=== PATIENT | female | born 1935 | race Caucasian/White ===

== ENCOUNTER 2019-02-16 15:58 | Inpatient (IN) | payer MEDICARE, MEDICAID ==
[~2019-02-16 15:58] MED LIST: ISOVUE-370 76%-LOCM 1 ML ONE
--- NOTE | 2019-02-16 16:55 | RAD ---
Chest one view HISTORY: Cough. Wheezing. COMPARISON: 04/04/2016. FINDINGS: Cardiac silhouette is magnified by projection. Pulmonary vasculature is upper limits of nor mal. Mediastinum is midline with postoperative changes and aortic calcification. Lungs remain hyperin flated. No evidence of pneumothorax. Degenerative changes of the shoulders are again demonstrated. Ir regular calcification over the medial margin of the left humeral neck is likely related to an intraca psular loose body. panel monitor leads overlie the chest. IMPRESSION: Atherosclerosis. Chronic type findings are stable. No active cardiopulmonary abnormalities are demonstrated.
[2019-02-16 17:01] LABS: #Basophils 0.1 thou/uL (0.0-0.2); #Eosinphils 0.1 thou/uL (0.0-0.7); #Lymphocytes 1.2 thou/uL (1.20-3.40); #Monocytes 0.5 thou/uL (0.11-0.59); #Neutrophils 9.9 thou/uL (1.40-6.50); %Basophils 0.5 % (0.0-1.0); %Eosinophils 1.1 % (0.0-10.0); %Monocytes 3.9 % (0.0-10.0); %Neutrophils 84.5 % (42.0-75.0); Hemoglobin 12.6 g/dL (12.0-16.0); Mean Corpuscular HGB CONC 31.7 g/dL (32.0-36.0); Mean Corpuscular Hemoglobin 29.8 pg (27.0-31.0); Mean Corpuscular Volume 94.1 fL (78.0-98.0); Mean Platelet Volume 8.4 fL (7.4-10.4); Platelet Count 224 thou/uL (130-400); RBC Distribution Width 13.1 % (11.5-14.5); Red Blood Cell (RBC) Count 4.22 mill/uL (4.20-5.40); White Blood Cell (WBC) Count 11.7 thou/uL (4.8-10.8)
[2019-02-16 17:25] LABS: Bilirubin Negative (Negative); Blood, Urine Negative (Negative); Clarity CLEAR (Clear); Glucose, Urine (Dipstick) Negative (Negative); Leukocyte Small (Negative); Nitrite Negative (Negative); Protein, Urine (Dipstick) Negative (Neg-Trace); Specific Gravity, Urine 1.015 (1.002-1.036); Urobilinogen 0.2 mg/dL (0.2-1.0)
[2019-02-16 17:27] LABS: Bacteria/HPF 3+ HPF (None Seen); Hyaline Casts/LPF 0-3 HYALINE CAST LPF (0-3 Hyaline); RBC/HPF 0-3 HPF (0-3)
[2019-02-16 17:34] LABS: ALT (SGPT) 7 U/L (8-55); AST (SGOT) 18 U/L (5-34); Albumin 4.2 g/dL (3.4-4.8); Alkaline Phosphatase 84 U/L (40-150); Anion Gap 16 mmol/L (10-20); BUN (Urea Nitrogen) 27 mg/dL (9.8-20.1); Bilirubin, Total 0.3 mg/dL (0.2-1.2); Calc. Creatinine Clearance 0 mL/min (70-130); Calcium 9.6 mg/dL (7.8-10.44); Carbon Dioxide 26 mmol/L (23-31); Chloride 103 mmol/L (98-107); Estimated GFR-MDRD 53; Globulin 2.6 g/dL (2.4-3.5); Glucose 121 mg/dL (83-110); Lipase 47 U/L (8-78); Potassium 4.7 mmol/L (3.5-5.1); Protein, Total 6.8 g/dL (6.0-8.3); Sodium 140 mmol/L (136-145)
[2019-02-16] MEDS ORDERED: Morphine 4 MG/ML VIAL ONE (18:06)
[2019-02-16] MEDS ORDERED: Ondansetron PF 4 MG/2 ML Vial ONE (18:06)
--- NOTE | 2019-02-16 18:31 | CT ---
CT ABDOMEN AND PELVIS WITH IV CONTRAST: History: Periumbilical abdominal pain. FINDINGS: Comparison made with exam of 08-27-14. There is mild infiltrate at the left lung base. The liver, spleen, pancreas, and right adrenal gland are normal. No calcified gallstones are seen. The 1.7 cm left adrenal nodule is stable. Bilateral renal cysts are again noted. There are vascular c alcifications without aneurysmal dilatation of the abdominal aorta. No free air, free fluid, or lymph adenopathy are seen in the abdomen or pelvis. There is a ventral hernia containing loops of nonobstructed bowel. There is colonic diverticulosis wi thout evidence of diverticulitis. Degenerative changes are present in the spine. IMPRESSION: 1. Left basilar infiltrate. 2. Stable left adrenal nodule since 2013. 3. Bilateral renal cysts. 4. Colonic diverticulosis without diverticulitis. 5. Bowel containing ventral hernia without obstruction. POS: [facility]
[2019-02-16] MEDS ORDERED: Azithromycin 500 MG VIAL ONE (19:07)
[2019-02-16] MEDS ORDERED: HYDROcodone/Acetaminophen 5/325 mg Tablet ONE (21:19)
[2019-02-16] MEDS ORDERED: Cepastat Lozenges 1 LOZ PO PRN (22:12)
[2019-02-16] MEDS ORDERED: Calcium Carbonate 500 MG ChewTAB PO PRN (22:12)
[2019-02-16] MEDS ORDERED: Sodium Chloride 0.65% Nasal 44 ML BOT EA NARE PRN (22:12)
[2019-02-16] MEDS ORDERED: Bisacodyl 10 MG SUPP PR PRN (22:12)
[2019-02-16] MEDS ORDERED: Senokot S 8.6-50 MG TAB PO PRN (22:12)
[2019-02-16] MEDS ORDERED: Artificial Tears 18 DROP/0.9 ML EA EYE PRN (22:12)
[2019-02-16] MEDS ORDERED: hydrALAZINE 20 MG/ML VIAL SLOW IVP PRN (22:12)
[2019-02-16] MEDS ORDERED: Eucerin (Mineral Oil/Petrolatum,White) 30 gm Jar TOP PRN (22:12)
[2019-02-16] MEDS ORDERED: Zolpidem Tartrate 5 MG TAB PO PRN (22:12)
[2019-02-16] MEDS ORDERED: Loperamide HCl 2 MG CAP PO PRN (22:12)
[2019-02-16] MEDS ORDERED: Metoclopramide HCl 10 MG/2 ML VIAL IVP PRN (22:12)
[2019-02-16] MEDS ORDERED: Bacteriostatic Water 30 ML VIAL FS PRN (22:29)
--- NOTE | 2019-02-16 23:57 | HP ---
PRIMARY CARE PHYSICIAN: Shahram Wolfe MD. REASON FOR ADMISSION: Left basilar pneumonia, abdominal pain. HISTORY OF PRESENT ILLNESS: An 83-year-old female, who has underlying history of COPD, who lives alone by herself. She was having increasing shortness of breath, increasing amount of cough. She was predominantly complaining of left-sided abdominal pain which was pleuritic in nature associated with cough and shortness of breath. The patient was also having nausea and poor appetite. She denies any vomiting. She denies any melena or hematochezia. She denies any abdominal distention. The patient is still smoking about six cigarettes daily basis. In the emergency room, the patient was appeared in mild respiratory distress and her clinical presentation was consistent with COPD flare-up as well as she was diagnosed with pneumonia. Her urinalysis was suggestive of UTI, but the patient does not have any UTI symptoms. Abdomen and pelvis CT scan confirmed left basilar pneumonia and colonic diverticulosis. REVIEW OF SYSTEMS: CONSTITUTIONAL: Negative for weight loss or gain, ability to conduct usual activities. SKIN: Negative for rash, itching. EYES: Negative for double vision, pain. ENT/MOUTH: Negative for nose bleeding, neck stiffness, pain, tenderness. CARDIOVASCULAR: Negative for palpitations, dyspnea on exertion, orthopnea. RESPIRATORY: Negative for shortness of breath, wheezing, cough, hemoptysis, fever or night sweats. GASTROINTESTINAL: Negative for poor appetite, abdominal pain, heartburn, nausea, vomiting, constipation, or diarrhea. GENITOURINARY: Negative for urgency, frequency, dysuria, nocturia. MUSCULOSKELETAL: Negative for pain, swelling. NEUROLOGIC/PSYCHIATRIC: Negative for anxiety, depression. ALLERGY/IMMUNOLOGIC: Negative for skin rash, bleeding tendency. Please see my HPI for pertinent positives and negatives. All other review of systems reviewed and negative except as mentioned in HPI. ALLERGIES: PENICILLIN. CURRENT HOME MEDICATIONS: 1. ProAir HFA two puffs q.6 hourly p.r.n. 2. Tylenol No. 3 one tablet q.6 hourly p.r.n. 3. Symbicort one inhalation b.i.d. 4. Flexeril 10 mg t.i.d. p.r.n. 5. Bentyl 10 mg q.i.d. p.r.n. 6. Levothyroxine 50 mcg p.o. daily. 7. Prinzide 1 tablet daily. 8. Pravastatin 40 mg at bedtime. 9. Spiriva 18 mcg inhalation daily. PAST MEDICAL HISTORY: Coronary artery disease, history of [place], hypertension, dyslipidemia, hypothyroidism, COPD, and tobacco abuse disorder. PAST SURGICAL HISTORY: Appendicectomy, CABG x3, hysterectomy, tonsillectomy, and polyp removed in 2013. PAST PSYCHIATRIC HISTORY: Reviewed and negative. SOCIAL HISTORY: The patient lives alone by herself. She is still smoking half pack per day. She denies any alcohol abuse. She denies any other illicit drug abuse. FAMILY HISTORY: No strong family history of premature coronary artery disease, stroke, or cancer. EMERGENCY ROOM COURSE: The patient received [place], Levaquin, IV fluid, azithromycin, morphine, and Zofran. PHYSICAL EXAMINATION: VITAL SIGNS: On arrival, blood pressure 132/73, pulse 104, respiratory rate 26, temperature 98.7, and saturation 95% on 4 L oxygen. Weight 61.2 kg. GENERAL: The patient is currently alert, awake, hypertensive, mild respiratory distress. HEENT: Head; normocephalic and atraumatic. Eyes; pupils are round and reactive to light. Extraocular muscle intact. ENT, oropharynx within normal limits. Moist mucous membranes. No oral lesion. No pharyngeal erythema. No exudate. NECK: Supple. No JVD. No thyromegaly. No carotid bruit. LUNGS: Left basilar rales noted. End-expiratory wheezing heard. No accessory muscles of respiration in use. CARDIAC: S1 and S2 regular. Tachycardia. No murmur elicited. No gallop. No rub. ABDOMEN: Soft. Bowel sounds present. No peritoneal sign. No guarding. No rigidity. No rebound. BACK: Unremarkable. No CVA tenderness. UPPER EXTREMITIES: Passive movement of all joints is normal. LOWER EXTREMITIES: No edema. Good distal pulsation. SKIN: No skin rash. HEMATOLOGICAL: No lymphadenopathy. PSYCHIATRIC: Normal affect. SIGNIFICANT LABORATORY DATA: EKG showing sinus arrhythmia, premature ventricular complexes. Chest x-ray based on my review, no acute cardiopulmonary process. CT abdomen and pelvis, based on my review, left basilar infiltrate, stable left adrenal nodule, colonic diverticulosis without diverticulitis, ventral hernia. CBC; WBC 11.7, hemoglobin 12.6, and platelet 224. BMP; sodium 140, potassium 4.7, chloride 103, carbon dioxide 26, BUN 27, creatinine 1.0, glucose 121, calcium 9.6, and lactic acid 1.2. LFT; AST 18, ALT 7, alkaline phosphatase 84, albumin 4.2, and lipase 47. Troponin 0.013. Urinalysis, suggestive of UTI. ASSESSMENT AND PLAN: Impression: 1. Chronic obstructive pulmonary disease exacerbation. The patient's chronic obstructive pulmonary disease is acting up for last 3 to 4 days. Currently, she has wheezing and she has left basilar pneumonia that is contributing to her exacerbation. The patient does not have any upper respiratory or lower respiratory symptoms other than increasing shortness of breath and cough. The patient will be treated with levofloxacin 750 mg IV daily, Solu-Medrol 40 mg IV q.8 hourly, Mucinex 600 mg twice daily, and DuoNeb therapy q.6 hourly, as well as Dulera 2 puff inhalation b.i.d. 2. Left lower lobe community-acquired pneumonia suspecting gram negative as well as gram positive. We will treat empirically with levofloxacin 750 mg IV daily, Mucinex 600 mg twice daily, and DuoNeb therapy p.r.n. basis. 3. Urinary tract infection. We will send urine culture and continue with levofloxacin. 4. Hypothyroidism. Once we verify the patient's home dose, we will continue levothyroxine therapy. 5. Gastroesophageal reflux disease. We will continue Pepcid 20 mg p.o. b.i.d. 6. Protein-calorie malnutrition, mild. We will provide Ensure Enlive twice daily. 7. Tobacco abuse disorder. Smoking cessation counseling given. We will offer nicotine patch if needed. 8. Dyslipidemia. After verification of her statin therapy, we will resume her home dose of medication. 9. Hypertension. We will continue the patient's home medication after verification. 10. Deep vein thrombosis prophylaxis, Lovenox 40 mg subcu daily. 11. Gastrointestinal prophylaxis, Pepcid 20 mg p.o. b.i.d. 12. Code status: I spoke with the patient about code status and answered all her question. She has pretty much understanding about her code status and DNR status as well and she expressed her wish to be a DNR. She does not want any kind of heroic measure in case of cardiopulmonary arrest. DNR order is written. DISCHARGE PLAN: We are expecting the patient's stay in hospital more than 2 midnights. Plan of care discussed with the patient in detail. Job ID: [id number]
[2019-02-17] MEDS: Sodium Chloride 0.9% 1,000 ML IV SCH ×2 (00:40→15:32)
[2019-02-17] MEDS ORDERED: HYDROcodone/Acetaminophen 5/325 mg Tablet ONE ×2 (01:58→09:02)
[2019-02-17] MEDS: HYDROcodone/Acetaminophen 5/325 mg Tablet PO PRN ×3 (02:00→18:28)
[2019-02-17 03:47] LABS: #Lymphocytes 0.4 thou/uL (1.20-3.40); #Monocytes 0.2 thou/uL (0.11-0.59); #Neutrophils 5.6 thou/uL (1.40-6.50); %Eosinophils 0.1 % (0.0-10.0); %Lymphocytes 7.1 % (21.0-51.0); %Monocytes 2.4 % (0.0-10.0); %Neutrophils 90.5 % (42.0-75.0); Hemoglobin 10.6 g/dL (12.0-16.0); Mean Corpuscular HGB CONC 31.9 g/dL (32.0-36.0); Mean Corpuscular Hemoglobin 30.1 pg (27.0-31.0); Mean Corpuscular Volume 94.3 fL (78.0-98.0); Mean Platelet Volume 8.5 fL (7.4-10.4); Platelet Count 198 thou/uL (130-400); RBC Distribution Width 12.9 % (11.5-14.5); Red Blood Cell (RBC) Count 3.52 mill/uL (4.20-5.40); White Blood Cell (WBC) Count 6.2 thou/uL (4.8-10.8)
[2019-02-17 04:03] LABS: ALT (SGPT) 11 U/L (8-55); AST (SGOT) 16 U/L (5-34); Albumin 3.8 g/dL (3.4-4.8); Alkaline Phosphatase 69 U/L (40-150); Anion Gap 13 mmol/L (10-20); BUN (Urea Nitrogen) 29 mg/dL (9.8-20.1); Bilirubin, Total 0.3 mg/dL (0.2-1.2); Calc. Creatinine Clearance 0 mL/min (70-130); Calcium 9.1 mg/dL (7.8-10.44); Carbon Dioxide 29 mmol/L (23-31); Chloride 104 mmol/L (98-107); Estimated GFR-MDRD 44; Globulin 2.5 g/dL (2.4-3.5); Glucose 136 mg/dL (83-110); Potassium 4.6 mmol/L (3.5-5.1); Protein, Total 6.3 g/dL (6.0-8.3); Sodium 141 mmol/L (136-145)
[2019-02-17] MEDS ORDERED: Acetaminophen 325 MG TAB ONE (04:03)
[2019-02-17] MEDS ORDERED: methylPREDNISolone Sod Succ 40 MG VIAL ONE (04:03)
[2019-02-17] MEDS: Acetaminophen 325 MG TAB PO PRN ×2 (04:06→21:46)
[2019-02-17] MEDS ORDERED: methylPREDNISolone Sod Succ/PF 125 MG/2 ML VIAL IVP SCH (06:00)
[2019-02-17] MEDS: methylPREDNISolone Sod Succ 40 MG VIAL IVP SCH ×3 (06:17→21:38)
[2019-02-17] MEDS: Mometasone/Formoterol 120 PUFF INHALER INH SCH ×2 (06:58→20:12)
[2019-02-17] MEDS ORDERED: Famotidine 20 MG TAB ONE (08:52)
[2019-02-17] MEDS ORDERED: Enoxaparin Sodium 40 MG/0.4 ML SYRINGE ONE (08:52)
[2019-02-17] MEDS: Enoxaparin Sodium 40 MG/0.4 ML SYRINGE SC SCH (09:12)
[2019-02-17] MEDS: Famotidine 20 MG TAB PO SCH ×2 (09:12→20:07)
[2019-02-17] MEDS: guaiFENesin ER 600 MG TAB PO SCH ×2 (09:13→20:07)
[2019-02-17] MEDS: Saccharomyces boulardii 250 MG CAP PO SCH (09:13)
[2019-02-17 14:51] VITALS: BMI 25.4
--- NOTE | 2019-02-17 16:11 | PDOC.PN ---
- Subjective Encounter Start Date: 02/17/19 Encounter Start Time: 16:09 Subjective: feels ill and not well -: achy all over.SOB.coughing - Objective Resuscitation Status - Order Detail: 02/16/19 23:01 Resuscitation Status Routine Resuscitation Status: DNAR: NO Resuscitation Discussed with: discussed with pt and confirmed MAR Reviewed: Yes Vital Signs & Weight: Vital Signs (12 hours) Temp Pulse Resp BP Pulse Ox 02/17/19 14:57 98.1 F 72 20 115/67 92 L 02/17/19 12:57 91 22 H 97 02/17/19 06:58 85 24 H 92 L Weight Weight 130 lb 9 oz Result Diagrams: 02/17/19 03:18 02/17/19 03:18 Additional Labs: Microbiology 02/16/19 16:48 Venous blood - Right Arm Blood Culture - Preliminary Specimen has been received and culture in progress. No Growth to date. 02/16/19 16:48 Venous blood - Left Arm Blood Culture - Preliminary Specimen has been received and culture in progress. No Growth to date. Laboratory Tests 02/16/19 02/17/19 16:47 03:18 Creatinine 1.00 1.17 H Phys Exam - Physical Examination Constitutional: NAD weak looking HEENT: PERRLA, sclera anicteric, oral pharynx no lesions dry mucosa Neck: no nodes, no JVD, supple, full ROM Respiratory: no rales, wheezing present Cardiovascular: RRR, no significant murmur Gastrointestinal: soft, non-tender, no distention, positive bowel sounds Musculoskeletal: no edema, pulses present Neurological: non-focal, normal sensation, moves all 4 limbs Psychiatric: normal affect, A&O x 3 Skin: no rash Dx/Plan (1) Acute exacerbation of chronic obstructive pulmonary disease (COPD) Code(s): J44.1 - CHRONIC OBSTRUCTIVE PULMONARY DISEASE W (ACUTE) EXACERBATION Status: Acute (2) Left lower lobe pneumonia Code(s): J18.1 - LOBAR PNEUMONIA, UNSPECIFIED ORGANISM Status: Acute (3) UTI (urinary tract infection) Status: Acute (4) HTN (hypertension) Code(s): I10 - ESSENTIAL (PRIMARY) HYPERTENSION Status: Chronic (5) CAD (coronary artery disease) Code(s): I25.10 - ATHSCL HEART DISEASE OF [place] CORONARY ARTERY W/O ANG PCTRS Status: Chronic (6) HLD (hyperlipidemia) Code(s): E78.5 - HYPERLIPIDEMIA, UNSPECIFIED Status: Chronic - Plan continue antibiotics, PT/OT, incentive spirometry, DVT proph w/SCDs cont nebs,O2 prn,dulera,IV steroids and ABx -: restart home meds once reconciled -: HD stable -: expect 3-4 days to get over this ACUTE ILLNESS * . Review of Systems - Review of Systems Constitutional: weakness, malaise. negative: fever, chills, sweats, other Respiratory: Cough, Shortness of Breath. negative: Dry, Hemoptysis, SOB with Excertion, Pleuritic Pain, Sputum, Wheezing Cardiovascular: negative: chest pain, palpitations, orthopnea, paroxysmal nocturnal dyspnea, edema, light headedness, other Gastrointestinal: Nausea. negative: Vomiting, Abdominal Pain, Diarrhea, Constipation, Melena, Hematochezia, Other Genitourinary: negative: Dysuria, Frequency, Incontinence, Hematuria, Retention , Other Musculoskeletal: negative: Neck Pain, Shoulder Pain, Arm Pain, Back Pain, Hand Pain, Leg Pain, Foot Pain, Other Skin: negative: Rash, Lesions, Rex, Bruising, Other Neurological: negative: Weakness, Numbness, Incoordination, Change in Speech, Confusion, Seizures, Other - Medications/Allergies Allergies/Adverse Reactions: Allergies Allergy/AdvReac Type Severity Reaction Status Date / Time Penicillins Allergy Severe Verified 02/17/19 14:52 bisoprolol [From Ziac] Allergy Verified 02/17/19 14:52 hydrochlorothiazide Allergy Verified 02/17/19 14:52 [From Ziac] Medications: Current Medications Acetaminophen (Tylenol) 650 mg PO Q4H PRN PRN Reason: Headache/Fever/Mild Pain (1-3) Last Admin: 02/17/19 04:06 Dose: 650 mg Hydrocodone Bitart/Acetaminophen ([place] 5/325) 1 tab PO Q4H PRN PRN Reason: Moderate Pain (4-6) Last Admin: 02/17/19 09:08 Dose: 1 tab Albuterol/Ipratropium (Duoneb) 3 ml NEB [id number] PRN PRN Reason: SOB &/or Wheezing Albuterol/Ipratropium (Duoneb) 3 ml NEB [id number] JUNIE Last Admin: 02/17/19 12:57 Dose: 3 ml Artificial Tears (Tears Naturale) 2 drop EA EYE PRN PRN PRN Reason: Dry Eyes Bisacodyl (Dulcolax) 10 mg [place] DAILYPRN PRN PRN Reason: Constipation Calcium Carbonate (Tums) 1,000 mg PO Q4H PRN PRN Reason: Heartburn or Indigestion Enoxaparin Sodium (Lovenox) 40 mg SC 0900 [facility] Last Admin: 02/17/19 09:12 Dose: 40 mg Famotidine (Pepcid) 20 mg PO BID [facility] Last Admin: 02/17/19 09:12 Dose: 20 mg Guaifenesin (Mucinex) 600 mg PO Q12HR [facility] Last Admin: 02/17/19 09:13 Dose: 600 mg Guaifenesin (Robitussin Sf) 200 mg PO Q4H PRN PRN Reason: Cough Hydralazine HCl (Apresoline) 10 mg SLOW IVP Q4H PRN PRN Reason: SBP > 180 and HR < 70 Sodium Chloride (Normal Saline 0.9%) 1,000 mls @ 70 mls/hr IV .[id number] [facility] Last Admin: 02/17/19 15:32 Dose: 1,000 mls Levofloxacin 750 mg/ Device 150 mls @ 100 mls/hr IVPB Q24HR [facility] Loperamide HCl (Imodium) 2 mg PO PRN PRN PRN Reason: Diarrhea/Loose Stools Loratadine (Claritin) 10 mg PO DAILYPRN PRN PRN Reason: Sinus Symptoms Methylprednisolone Sodium Succinate (Solu-Medrol) 40 mg IVP Q8HR [facility] Last Admin: 02/17/19 15:32 Dose: 40 mg Metoclopramide HCl (Reglan) 5 mg IVP Q4H PRN PRN Reason: Nausea Mineral Oil/White Petrolatum (Eucerin Cream) 0 gm TOP BIDPRN PRN PRN Reason: Dry Skin Mometasone Furoate/Formoterol Fumar (Dulera 200 Mcg/5 Mcg Inhaler) 2 puff INH BID-RT [facility] Last Admin: 02/17/19 06:58 Dose: 2 puff Saccharomyces Boulardii (Florastor) 250 mg PO DAILY [facility] Last Admin: 02/17/19 09:13 Dose: 250 mg Senna/Docusate Sodium (Senokot S) 2 tab PO BIDPRN PRN PRN Reason: Constipation Sodium Chloride ([place] Nasal [place] 0.65%) 0 ml EA NARE QIDPRN PRN PRN Reason: Nasal Congestion Sterile Water (Bacteriostatic Water) 1 ml FS PRN PRN PRN Reason: RECONSTITUTION Throat Lozenges (Cepastat Lozenges) 1 belen PO Q2H PRN PRN Reason: Sore Throat Zolpidem Tartrate (Ambien) 5 mg PO HSPRN PRN PRN Reason: Insomnia
[2019-02-18] MEDS: HYDROcodone/Acetaminophen 5/325 mg Tablet PO PRN ×2 (05:14→21:18)
[2019-02-18] MEDS: methylPREDNISolone Sod Succ 40 MG VIAL IVP SCH (05:16)
[2019-02-18] MEDS: Sodium Chloride 0.9% 1,000 ML IV SCH (05:16)
[2019-02-18] MEDS: Loratadine 10 MG TAB PO PRN (05:23)
[2019-02-18] MEDS: Diabetic Tussin 200 MG/10 ML UDCUP PO PRN (05:23)
[2019-02-18] MEDS: Mometasone/Formoterol 120 PUFF INHALER INH SCH (07:02)
[2019-02-18] MEDS: guaiFENesin ER 600 MG TAB PO SCH ×2 (07:38→19:48)
[2019-02-18] MEDS: Famotidine 20 MG TAB PO SCH (07:38)
[2019-02-18] MEDS: Saccharomyces boulardii 250 MG CAP PO SCH (07:38)
[2019-02-18] MEDS: Enoxaparin Sodium 40 MG/0.4 ML SYRINGE SC SCH (07:39)
[2019-02-18] MEDS ORDERED: Spiriva 18 MCG CAP (Box of 5 Caps) INH SCH (10:02)
[2019-02-18] MEDS ORDERED: PROVENTIL INHALER 6.7 G (200 INHALATIONS) INH PRN (10:02)
[2019-02-18] MEDS ORDERED: Famotidine 20 MG TAB PO SCH (10:30)
--- NOTE | 2019-02-18 16:09 | PDOC.PN ---
- Subjective Encounter Start Date: 02/18/19 Encounter Start Time: 16:07 Subjective: feels much better but still struggling to breathe -: not able to bring up phlegmn easily.Has home O2 but uses only seldom -: needs portable O2 tank for home - Objective Resuscitation Status - Order Detail: 02/16/19 23:01 Resuscitation Status Routine Resuscitation Status: DNAR: NO Resuscitation Discussed with: discussed with pt and confirmed MAR Reviewed: Yes Vital Signs & Weight: Vital Signs (12 hours) Temp Pulse Resp BP Pulse Ox Pulse Ox Pulse Ox 02/18/19 12:41 79 16 93 L 02/18/19 10:54 98 94 L 02/18/19 08:00 94 L 02/18/19 07:48 98.0 F 65 20 120/65 94 L 02/18/19 07:00 75 16 94 L Pulse Ox 02/18/19 12:41 02/18/19 10:54 95 02/18/19 08:00 02/18/19 07:48 02/18/19 07:00 Weight Admit Weight 130 lb 9 oz Weight 130 lb 9 oz I&O: 02/17/19 02/18/19 02/19/19 06:59 06:59 06:59 Intake Total 480 Balance 480 Result Diagrams: 02/17/19 03:18 02/17/19 03:18 Additional Labs: Microbiology 02/16/19 16:48 Venous blood - Right Arm Blood Culture - Preliminary Gram Positive Cocci 02/16/19 16:48 Venous blood - Left Arm Blood Culture - Preliminary Specimen has been received and culture in progress. No Growth to date. Phys Exam - Physical Examination Constitutional: NAD able to talk in full sentences.sitting up on the side of the bed HEENT: PERRLA, moist MMs, sclera anicteric, oral pharynx no lesions Neck: no nodes, no JVD, supple, full ROM Respiratory: no wheezing, no rales, no rhonchi, clear to auscultation bilateral reduced R lung Cardiovascular: RRR, no significant murmur Gastrointestinal: soft, non-tender, no distention, positive bowel sounds Musculoskeletal: no edema, pulses present Neurological: non-focal, normal sensation, moves all 4 limbs Lymphatic: no nodes Psychiatric: normal affect, A&O x 3 Skin: no rash Dx/Plan (1) Acute exacerbation of chronic obstructive pulmonary disease (COPD) Code(s): J44.1 - CHRONIC OBSTRUCTIVE PULMONARY DISEASE W (ACUTE) EXACERBATION Status: Acute (2) Left lower lobe pneumonia Code(s): J18.1 - LOBAR PNEUMONIA, UNSPECIFIED ORGANISM Status: Acute (3) UTI (urinary tract infection) Status: Acute (4) HTN (hypertension) Code(s): I10 - ESSENTIAL (PRIMARY) HYPERTENSION Status: Chronic (5) CAD (coronary artery disease) Code(s): I25.10 - ATHSCL HEART DISEASE OF [place] CORONARY ARTERY W/O ANG PCTRS Status: Chronic (6) HLD (hyperlipidemia) Code(s): E78.5 - HYPERLIPIDEMIA, UNSPECIFIED Status: Chronic - Plan continue antibiotics, PT/OT, respiratory therapy, incentive spirometry, out of bed/ambulate, DVT proph w/SCDs continue current care w Nebs,dulera,IV Steroids and IV ABx -: O2 prn -: will arrange home portable O2 as well -: pt will benefir from Pulmonary eval.will request Recs inpt w OP f/u -: clinically better but will likely need several days to get back to baseline * .follow Cx. /2 Blood Cx +ve -likely contamination. will follow Review of Systems - Review of Systems Constitutional: weakness, malaise. negative: fever, chills, sweats, other Respiratory: Cough, Shortness of Breath, SOB with Excertion, Pleuritic Pain, Sputum, Wheezing. negative: Dry, Hemoptysis Cardiovascular: negative: chest pain, palpitations, orthopnea, paroxysmal nocturnal dyspnea, edema, light headedness, other Gastrointestinal: negative: Nausea, Vomiting, Abdominal Pain, Diarrhea, Constipation, Melena, Hematochezia, Other Genitourinary: negative: Dysuria, Frequency, Incontinence, Hematuria, Retention , Other Musculoskeletal: negative: Neck Pain, Shoulder Pain, Arm Pain, Back Pain, Hand Pain, Leg Pain, Foot Pain, Other Skin: negative: Rash, Lesions, Rex, Bruising, Other Neurological: negative: Weakness, Numbness, Incoordination, Change in Speech, Confusion, Seizures, Other - Medications/Allergies Allergies/Adverse Reactions: Allergies Allergy/AdvReac Type Severity Reaction Status Date / Time Penicillins Allergy Severe Verified 02/17/19 14:52 bisoprolol [From Ziac] Allergy Verified 02/17/19 14:52 hydrochlorothiazide Allergy Verified 02/17/19 14:52 [From Ziac] Medications: Current Medications Acetaminophen (Tylenol) 650 mg PO Q4H PRN PRN Reason: Headache/Fever/Mild Pain (1-3) Last Admin: 02/17/19 21:46 Dose: 650 mg Hydrocodone Bitart/Acetaminophen ([place] 5/325) 1 tab PO Q4H PRN PRN Reason: Moderate Pain (4-6) Last Admin: 02/18/19 05:14 Dose: 1 tab Albuterol Sulfate (Proventil Hfa) 2 puff INH Q4HR PRN PRN Reason: SOB &/or Wheezing Albuterol/Ipratropium (Duoneb) 3 ml NEB [id number] [facility] Last Admin: 02/18/19 12:41 Dose: 3 ml Amlodipine Besylate (Norvasc) 5 mg PO DAILY [facility] Artificial Tears (Tears Naturale) 2 drop EA EYE PRN PRN PRN Reason: Dry Eyes Atorvastatin Calcium (Lipitor) 10 mg PO HS JUNIE Azelastine HCl (Azelastine) 0 ml NS DAILY [facility] Bisacodyl (Dulcolax) 10 mg [place] DAILYPRN PRN PRN Reason: Constipation Calcium Carbonate (Tums) 1,000 mg PO Q4H PRN PRN Reason: Heartburn or Indigestion Enoxaparin Sodium (Lovenox) 40 mg SC 0900 [facility] Last Admin: 02/18/19 07:39 Dose: 40 mg Famotidine (Pepcid) 20 mg PO 0900 [facility] Furosemide (Lasix) 20 mg PO DAILY [facility] Guaifenesin (Robitussin Sf) 200 mg PO Q4H PRN PRN Reason: Cough Last Admin: 02/18/19 05:23 Dose: 200 mg Guaifenesin (Mucinex) 1,200 mg PO Q12HR JUNIE Hydralazine HCl (Apresoline) 10 mg SLOW IVP Q4H PRN PRN Reason: SBP > 180 and HR < 70 Levofloxacin 750 mg/ Device 150 mls @ 100 mls/hr IVPB Q24HR [facility] Last Admin: 02/17/19 21:39 Dose: 150 mls Levothyroxine Sodium (Synthroid) 50 mcg PO 0600 JUNIE Loperamide HCl (Imodium) 2 mg PO PRN PRN PRN Reason: Diarrhea/Loose Stools Loratadine (Claritin) 10 mg PO DAILYPRN PRN PRN Reason: Sinus Symptoms Last Admin: 02/18/19 05:23 Dose: 10 mg Metoclopramide HCl (Reglan) 5 mg IVP Q4H PRN PRN Reason: Nausea Mineral Oil/White Petrolatum (Eucerin Cream) 0 gm TOP BIDPRN PRN PRN Reason: Dry Skin Prednisone (Prednisone) 40 mg PO [facility] Saccharomyces Boulardii (Florastor) 250 mg PO DAILY [facility] Last Admin: 02/18/19 07:38 Dose: 250 mg Senna/Docusate Sodium (Senokot S) 2 tab PO BIDPRN PRN PRN Reason: Constipation Sodium Chloride ([place] Nasal [place] 0.65%) 0 ml EA NARE QIDPRN PRN PRN Reason: Nasal Congestion Throat Lozenges (Cepastat Lozenges) 1 belen PO Q2H PRN PRN Reason: Sore Throat Zolpidem Tartrate (Ambien) 5 mg PO HSPRN PRN PRN Reason: Insomnia
[2019-02-18] MEDS: Atorvastatin Calcium 10 MG TAB PO SCH (19:49)
--- NOTE | 2019-02-18 21:35 | CON ---
DATE OF CONSULTATION: 02/18/2019 SERVICE: Pulmonary Medicine. REASON FOR CONSULT: COPD exacerbation. HISTORY OF PRESENT ILLNESS: The patient is an 83-year-old white female with past medical history significant for COPD. She takes Spiriva and Symbicort in the outpatient setting. She was in her usual state of health until about 1 month prior to presentation. Over this period of time, she had a slow increase in shortness of breath. She had a change in the sputum character. It was thicker, heavier, and more green. She was doing fine at home until she stopped being able to liberate the mucus. She still felt that it was down in her chest, but just simply trapped. Ultimately, she woke up one morning and had a very difficult time breathing. She denies specifically having orthopnea or paroxysmal nocturnal dyspnea over this last month. Weight has not changed and she has not had experienced any new swelling. She did have any fevers. There was nobody that was sick around her recently. She presented to the emergency department because she felt like she wanted to . Overnight, she was given some nebulized medications, steroids, and antibiotics. She actually feels significantly improved at this point. She still has a cough but is having a hard time liberating the mucus. She is not having any chest pain, palpitations, nausea, vomiting, or diarrhea. She is not aware of any hot, red, swollen joints, or any rashes. PAST MEDICAL HISTORY: 1. COPD. 2. Coronary artery disease. 3. Hypertension. 4. Dyslipidemia. 5. Hypothyroidism. 6. Tobacco abuse, ongoing. PAST SURGICAL HISTORY: 1. Appendectomy. 2. Coronary artery bypass graft x3. 3. Hysterectomy. 4. Tonsillectomy. 5. Polypectomy. SOCIAL HISTORY: Negative for alcohol or illicit drug use. She has no exposure to chemicals, dust, asbestos, or tuberculosis. She has a greater than [id number] history of smoking and continues to smoke about a half pack on a daily basis. FAMILY HISTORY: Noncontributory. ALLERGIES: PENICILLIN, BISOPROLOL, HYDROCHLOROTHIAZIDE. MEDICATIONS: List of her inpatient medications was reviewed. Multiple updates were made. REVIEW OF SYSTEMS: General, head, ears, eyes, nose, throat, cardiovascular, respiratory, GI, , musculoskeletal, neurologic, and skin is negative except as mentioned in HPI. PHYSICAL EXAMINATION: VITAL SIGNS: Afebrile, pulse 79, blood pressure is 120/65, respirations 14, saturation 94% on 2 L nasal cannula. GENERAL: The patient is awake and alert, in no apparent distress. LUNGS: Very profoundly reduced air entry. There is a prolonged expiratory phase. I do not appreciate wheezing or rhonchi. HEART: Normal rate, regular. ABDOMEN: Soft, nontender, nondistended. Bowel sounds are positive. MUSCULOSKELETAL: No cyanosis or clubbing. No pitting in the bilateral lower extremities. NEUROLOGIC: Grossly nonfocal. LABORATORY DATA: WBC 6.2, hemoglobin 10.6, platelets 198,000. Creatinine 1.17. Basic metabolic profile and liver function studies are otherwise unremarkable. Troponin is negative x1. Urinalysis is completely unremarkable except for minimal pyuria, but there are several epithelial cells suggesting this is likely contaminant. Bacteria is 3+, though nitrites and leukocyte esterase are negative. Blood culture is growing gram-positive cocci in one out of two. The other culture is sterile. IMAGIN. Chest x-ray demonstrates no acute cardiopulmonary abnormality. Lungs are hyperinflated. 2. CT of the abdomen and pelvis demonstrates findings consistent with emphysema. There is smallest of the small infiltrates in the left base. An adrenal nodule is incidentally identified but stable since 2014. Diverticulosis without diverticulitis is present. ASSESSMENT: 1. Acute on chronic hypoxic respiratory failure. 2. Chronic obstructive pulmonary disease with acute exacerbation. 3. Community-acquired pneumonia, very small. DISCUSSION AND PLAN: We will switch the patient's steroids over to p.o. We will continue nebulized medications and antibiotics directed at lung issues. The antibiotic choice is adequate. Mucinex will be scheduled. I will also give her nose spray as she is having significant rhinitis/congestion of the nose which is long-standing. The blood culture is likely going to be contaminant, we will follow this through time to make certain that we do not need to modify our antibiotic choice. If she fails to liberate sputum over the next 24 to 48 hours, we will introduce some physiotherapy. 70 minutes have been devoted to this patient in various activities. I personally reviewed all imaging studies and laboratory data noted within this document. For fifty percent of this time, I was interacting with the patient at the bedside or coordinating care with the care team. For the remainder of the time I was immediately available to the patient in the hospital unit. Job ID: [id number] [facility]
[2019-02-19] MEDS: Diabetic Tussin 200 MG/10 ML UDCUP PO PRN (01:37)
[2019-02-19] MEDS: Loratadine 10 MG TAB PO PRN ×2 (01:39→20:30)
[2019-02-19] MEDS: Levothyroxine Sodium 50 MCG TAB PO SCH (05:40)
[2019-02-19] MEDS: HYDROcodone/Acetaminophen 5/325 mg Tablet PO PRN (06:00)
[2019-02-19] MEDS: Amlodipine 5 MG TAB PO SCH (08:47)
[2019-02-19] MEDS: predniSONE 20 MG TAB PO SCH (08:47)
[2019-02-19] MEDS: Famotidine 20 MG TAB PO SCH (08:47)
[2019-02-19] MEDS: guaiFENesin ER 600 MG TAB PO SCH ×2 (08:47→20:31)
[2019-02-19] MEDS: Saccharomyces boulardii 250 MG CAP PO SCH (08:47)
[2019-02-19] MEDS: Furosemide 20 MG TAB PO SCH (08:47)
[2019-02-19] MEDS: Enoxaparin Sodium 40 MG/0.4 ML SYRINGE SC SCH (08:48)
[2019-02-19] MEDS: Azelastine 137 MCG/Spray 30 ML NS SCH (10:33)
--- NOTE | 2019-02-19 15:24 | PDOC.PN ---
- Subjective Encounter Start Date: 02/19/19 Encounter Start Time: 15:22 Subjective: feels bit better. still very weak.scared to go home as lives alone -: breathing bit easier and coughing less -: difficult to bring up sputum - Objective Resuscitation Status - Order Detail: 02/16/19 23:01 Resuscitation Status Routine Resuscitation Status: DNAR: NO Resuscitation Discussed with: discussed with pt and confirmed MAR Reviewed: Yes Vital Signs & Weight: Vital Signs (12 hours) Temp Pulse Resp BP BP Pulse Ox 02/19/19 14:22 84 24 H 02/19/19 08:47 75 142/82 H 02/19/19 08:00 100 02/19/19 07:57 97.9 F 75 20 142/82 H 100 02/19/19 07:11 80 20 Weight Admit Weight 130 lb 9 oz Weight 130 lb 9 oz I&O: 02/18/19 02/19/19 02/20/19 06:59 06:59 06:59 Intake Total 720 360 Balance 720 360 Result Diagrams: 02/17/19 03:18 02/17/19 03:18 Additional Labs: Microbiology 02/16/19 16:48 Venous blood - Right Arm Blood Culture - Preliminary Gram Positive Cocci 02/16/19 16:48 Venous blood - Left Arm Blood Culture - Preliminary NO GROWTH AT 48 HOURS Phys Exam - Physical Examination Constitutional: NAD easily winded HEENT: PERRLA, moist MMs, sclera anicteric, oral pharynx no lesions Respiratory: no wheezing, no rales, no rhonchi, clear to auscultation bilateral coarse at bases Cardiovascular: RRR, no significant murmur Gastrointestinal: soft, non-tender, no distention, positive bowel sounds Musculoskeletal: no edema, pulses present Neurological: non-focal, normal sensation, moves all 4 limbs Psychiatric: normal affect, A&O x 3 Dx/Plan (1) Acute exacerbation of chronic obstructive pulmonary disease (COPD) Code(s): J44.1 - CHRONIC OBSTRUCTIVE PULMONARY DISEASE W (ACUTE) EXACERBATION Status: Acute (2) Left lower lobe pneumonia Code(s): J18.1 - LOBAR PNEUMONIA, UNSPECIFIED ORGANISM Status: Acute (3) UTI (urinary tract infection) Status: Acute (4) HTN (hypertension) Code(s): I10 - ESSENTIAL (PRIMARY) HYPERTENSION Status: Chronic (5) CAD (coronary artery disease) Code(s): I25.10 - ATHSCL HEART DISEASE OF [place] CORONARY ARTERY W/O ANG PCTRS Status: Chronic (6) HLD (hyperlipidemia) Code(s): E78.5 - HYPERLIPIDEMIA, UNSPECIFIED Status: Chronic - Plan PT/OT, respiratory therapy, incentive spirometry, DVT proph w/SCDs cont nebs,Steroids,o2 ,abx -: appreciate PCCM input -: will assist w placent to SNU as pt lives alone and high risk -: follow Cx .negative so far.slow clinical improvement * . Review of Systems - Review of Systems Constitutional: weakness, malaise Respiratory: Cough, Shortness of Breath, SOB with Excertion, Sputum, Wheezing. negative: Dry, Hemoptysis, Pleuritic Pain Cardiovascular: negative: chest pain, palpitations, orthopnea, paroxysmal nocturnal dyspnea, edema, light headedness, other Gastrointestinal: negative: Nausea, Vomiting, Abdominal Pain, Diarrhea, Constipation, Melena, Hematochezia, Other Genitourinary: negative: Dysuria, Frequency, Incontinence, Hematuria, Retention , Other Musculoskeletal: negative: Neck Pain, Shoulder Pain, Arm Pain, Back Pain, Hand Pain, Leg Pain, Foot Pain, Other Neurological: negative: Weakness, Numbness, Incoordination, Change in Speech, Confusion, Seizures, Other - Medications/Allergies Allergies/Adverse Reactions: Allergies Allergy/AdvReac Type Severity Reaction Status Date / Time Penicillins Allergy Severe Verified 02/17/19 14:52 bisoprolol [From Ziac] Allergy Verified 02/17/19 14:52 hydrochlorothiazide Allergy Verified 02/17/19 14:52 [From Ziac] Medications: Current Medications Acetaminophen (Tylenol) 650 mg PO Q4H PRN PRN Reason: Headache/Fever/Mild Pain (1-3) Last Admin: 02/17/19 21:46 Dose: 650 mg Hydrocodone Bitart/Acetaminophen ([place] 5/325) 1 tab PO Q4H PRN PRN Reason: Moderate Pain (4-6) Last Admin: 02/19/19 06:00 Dose: 1 tab Albuterol Sulfate (Proventil Hfa) 2 puff INH Q4HR PRN PRN Reason: SOB &/or Wheezing Albuterol/Ipratropium (Duoneb) 3 ml NEB [id number] Last Admin: 02/19/19 14:22 Dose: 3 ml Amlodipine Besylate (Norvasc) 5 mg PO DAILY [facility] Last Admin: 02/19/19 08:47 Dose: 5 mg Artificial Tears (Tears Naturale) 2 drop EA EYE PRN PRN PRN Reason: Dry Eyes Atorvastatin Calcium (Lipitor) 10 mg PO HS [facility] Last Admin: 02/18/19 19:49 Dose: 10 mg Azelastine HCl (Azelastine) 0 ml NS DAILY [facility] Last Admin: 02/19/19 10:33 Dose: 1 spray Bisacodyl (Dulcolax) 10 mg [place] DAILYPRN PRN PRN Reason: Constipation Calcium Carbonate (Tums) 1,000 mg PO Q4H PRN PRN Reason: Heartburn or Indigestion Enoxaparin Sodium (Lovenox) 40 mg SC 0900 [facility] Last Admin: 02/19/19 08:48 Dose: 40 mg Famotidine (Pepcid) 20 mg PO 0900 [facility] Last Admin: 02/19/19 08:47 Dose: 20 mg Furosemide (Lasix) 20 mg PO DAILY [facility] Last Admin: 02/19/19 08:47 Dose: 20 mg Guaifenesin (Robitussin Sf) 200 mg PO Q4H PRN PRN Reason: Cough Last Admin: 02/19/19 01:37 Dose: 200 mg Guaifenesin (Mucinex) 1,200 mg PO Q12HR [facility] Last Admin: 02/19/19 08:47 Dose: 1,200 mg Hydralazine HCl (Apresoline) 10 mg SLOW IVP Q4H PRN PRN Reason: SBP > 180 and HR < 70 Levofloxacin 750 mg/ Device 150 mls @ 100 mls/hr IVPB Q24HR [facility] Last Admin: 02/18/19 19:50 Dose: 150 mls Levothyroxine Sodium (Synthroid) 50 mcg PO 0600 [facility] Last Admin: 02/19/19 05:40 Dose: 50 mcg Loperamide HCl (Imodium) 2 mg PO PRN PRN PRN Reason: Diarrhea/Loose Stools Loratadine (Claritin) 10 mg PO DAILYPRN PRN PRN Reason: Sinus Symptoms Last Admin: 02/19/19 01:39 Dose: 10 mg Metoclopramide HCl (Reglan) 5 mg IVP Q4H PRN PRN Reason: Nausea Mineral Oil/White Petrolatum (Eucerin Cream) 0 gm TOP BIDPRN PRN PRN Reason: Dry Skin Prednisone (Prednisone) 40 mg PO QA-[facility] Last Admin: 02/19/19 08:47 Dose: 40 mg Saccharomyces Boulardii (Florastor) 250 mg PO DAILY [facility] Last Admin: 02/19/19 08:47 Dose: 250 mg Senna/Docusate Sodium (Senokot S) 2 tab PO BIDPRN PRN PRN Reason: Constipation Sodium Chloride ([place] Nasal Ray 0.65%) 0 ml EA NARE QIDPRN PRN PRN Reason: Nasal Congestion Throat Lozenges (Cepastat Lozenges) 1 belen PO Q2H PRN PRN Reason: Sore Throat Zolpidem Tartrate (Ambien) 5 mg PO HSPRN PRN PRN Reason: Insomnia
--- NOTE | 2019-02-19 17:23 | PRG ---
DATE OF SERVICE: 02/19/2019 SERVICE: Pulmonary Medicine. INTERVAL HISTORY: The patient is doing fine from respiratory standpoint. Breathing comfortably. No complaints of chest pain, fevers, or chills. Her shortness of breath is dramatically improved. She is not quite back to baseline yet. She continues to have a cough. She has a hard time liberating the sputum, but she feels it started to move a touch more. PHYSICAL EXAMINATION: VITAL SIGNS: Afebrile, pulse 75, blood pressure 142/82, respirations 20, saturation 100% on 2 L nasal cannula. GENERAL: The patient is awake and alert, in no apparent distress. LUNGS: Excellent air entry. No prolonged expiratory phase or wheezing present. HEART: Normal rate, regular. ABDOMEN: Soft, nontender, and nondistended. Bowel sounds are positive. MUSCULOSKELETAL: No cyanosis or clubbing. No pitting in the bilateral lower extremities. NEUROLOGIC: Grossly nonfocal. LABORATORY DATA: One out of two blood cultures is growing gram-positive cocci. We are still awaiting the ID of that organism. ASSESSMENT: 1. Acute on chronic hypoxic respiratory failure. 2. Chronic obstructive pulmonary disease with acute exacerbation. 3. Community-acquired pneumonia, very small. DISCUSSION AND PLAN: We will continue the steroids, antibiotics, and nebulized medications. We will also continue the Mucinex and physiotherapy. At this point, she is not quite ready to go home yet. She needs a little bit more time before this thing opens up. I have encouraged her to mobilize over the next 24 hours. I will consult with the walking program to see if we can get her more ambulatory. Job ID: [id number]
[2019-02-19] MEDS: Atorvastatin Calcium 10 MG TAB PO SCH (20:30)
[2019-02-20] MEDS: Levothyroxine Sodium 50 MCG TAB PO SCH (06:00)
[2019-02-20] MEDS: Diabetic Tussin 200 MG/10 ML UDCUP PO PRN (07:37)
[2019-02-20] MEDS: Furosemide 20 MG TAB PO SCH (07:38)
[2019-02-20] MEDS: guaiFENesin ER 600 MG TAB PO SCH (07:38)
[2019-02-20] MEDS: HYDROcodone/Acetaminophen 5/325 mg Tablet PO PRN (07:38)
[2019-02-20] MEDS: predniSONE 20 MG TAB PO SCH (07:39)
[2019-02-20] MEDS: Saccharomyces boulardii 250 MG CAP PO SCH (07:40)
[2019-02-20] MEDS: Amlodipine 5 MG TAB PO SCH (07:40)
[2019-02-20] MEDS: Famotidine 20 MG TAB PO SCH (07:40)
[2019-02-20] MEDS: Azelastine 137 MCG/Spray 30 ML NS SCH (07:41)
[2019-02-20] MEDS: Enoxaparin Sodium 40 MG/0.4 ML SYRINGE SC SCH (07:41)
[2019-02-20 11:58] VITALS: BP 103/68; TEMP 97.9
[2019-02-20] MEDS ORDERED: Furosemide 20 MG/2 ML VIAL SLOW IVP SCH (12:00)
--- NOTE | 2019-02-20 12:27 | PRG ---
DATE OF SERVICE: 02/20/2019 SERVICE: Pulmonary Medicine. INTERVAL HISTORY: The patient is doing really well from respiratory standpoint. Breathing comfortably. Denies any current chest pain, fevers, chills, nausea, vomiting, or diarrhea. Otherwise, there has been no interval change to her condition. She indicates that her breathing is much improved, but the lower extremity swelling has increased a little bit. She typically takes a daily dose of Lasix at home, which we have held here. She has a cough, but not bring anything up. She really does not feel much of a rattle at this point. PHYSICAL EXAMINATION: VITAL SIGNS: Afebrile, pulse 84, blood pressure 153/78, respirations 12, and saturation 95% on 2 L nasal cannula. GENERAL: The patient is awake and alert, in no apparent distress. LUNGS: Excellent air entry with no prolonged expiratory phase or wheezing. HEART: Normal rate. Regular. ABDOMEN: Soft, nontender, and nondistended. Bowel sounds are positive. MUSCULOSKELETAL: No cyanosis or clubbing. No pitting in the bilateral lower extremities. NEUROLOGIC: Grossly nonfocal. LABORATORY DATA: Blood culture is growing presumptive micrococcus in 1 out of 2. ASSESSMENT: 1. Acute on chronic hypoxic respiratory failure. 2. Chronic obstructive pulmonary disease with acute exacerbation. 3. Community-acquired pneumonia, small. DISCUSSION AND PLAN: We will continue steroids, antibiotics, and nebulized medications. We will also continue the Mucinex and physiotherapy. She is going to use the physiotherapy at home for the rest of her life. She has an acapella valve that she can take home. From my perspective, she is stable for transition out of the hospital. I will provide her with a single dose of Lasix and on discharge from the hospital, her home diuretic should be continued. If she stays in-house, Pulmonary/Critical Care will continue to follow. Job ID: [id number]
[2019-02-20] MEDS ORDERED: Furosemide 40 MG TAB PO SCH (12:45)
--- NOTE | 2019-02-21 07:07 | DIS ---
DATE OF ADMISSION: 02/16/2019 DATE OF DISCHARGE: 02/20/2019 PRIMARY CARE PHYSICIAN: Dr. Shahram Wolfe. DISCHARGE DISPOSITION: [facility] Bed. DISCHARGE DIAGNOSES: 1. Acute chronic obstructive pulmonary disease exacerbation. 2. Left lower lobe pneumonia. 3. Urinary tract infection. 4. Hypertension. 5. Coronary artery disease. 6. Dyslipidemia. 7. Possible gastroesophageal reflux disease. DISCHARGE MEDICATIONS: New medications, 1. Azelastine one spray daily, nasal. 2. Levaquin 500 mg daily for 7 more days. 3. Claritin p.r.n. 4. Protonix 40 mg daily. 5. Florastor 250 mg daily. 6. Prednisone tapering dose. 7. Mucinex 600 mg daily. Resume home medications as follows; 1. Symbicort 160/4.5 two puffs b.i.d. 2. Levothyroxine 50 mcg daily. 3. Amlodipine 5 mg daily. 4. Lasix 20 mg daily. 5. Spiriva 18 mcg daily. 6. Pitavastatin 2 mg at bedtime. IN-HOUSE CONSULTATION: Pulmonary Medicine, Dr. Wheat. DISCHARGE FOLLOWUP: 1. Primary care physician. 2. Pulmonary Medicine, Dr. Wheat. PROCEDURES DONE IN THE HOSPITAL: CT scan of the abdomen and pelvis, which shows left basilar infiltrate and stable left adrenal nodule since 2014 and colonic diverticulosis without diverticulitis. Bowel hernia without obstruction. HISTORY OF PRESENTING ILLNESS: Ms. Billy is a very pleasant 83-year-old female with known history of COPD and chronic respiratory failure, using home oxygen on and off as needed as well as history of coronary artery disease, dyslipidemia, hypertension and hypothyroidism, who presented to the emergency room with complaints of worsening shortness of breath. She was also having left-sided abdominal pain which was pleuritic in nature, associated with cough. She was in mild respiratory distress upon presentation and was diagnosed with COPD flare up as well as left lower lobe pneumonia in the emergency room. Her urinalysis was suggestive of UTI, but she was asymptomatic with regard to this. She was started on COPD appropriate med treatment including nebulizer, IV steroids, IV antibiotic, oxygen, long-acting inhaled steroids, and was admitted for further evaluation and care. Please see admission history and physical dictated by Dr. Rios on 02/16/2019. HOSPITAL COURSE: The patient had slow clinical improvement in the hospital and Pulmonary Medicine was consulted. She was seen by Dr. Wheat, who agreed with the above-mentioned treatment. Eventually, the patient was stabilized. She was deemed not safe to return home because she lives alone and she was still very weak. Physical and Occupational Therapy were consulted and they recommended which was arranged in the form of swing bed at [place]. As of this morning, the patient is feeling much better and is eager to get out of the hospital. She has been cleared for discharge from pulmonary standpoint as well. On examination, she has no wheezing. Her vital signs are stable. Heart rate and rhythm regular. All questions were answered and discharge plan was discussed with the patient who verbalized understanding. She is being started on proton pump inhibitor for at least one month. Given that possibly her symptoms are also being contributed by the gastroesophageal reflux disease as she has a hernia and excessive phlegm production. Otherwise, her physical examination was within normal limits. She does get easily winded with long conversation and is encouraged to keep her oxygen on. She was seen and examined prior to discharge as above. TOTAL TIME SPENT: 32 minutes. Job ID: [id number]
== END 2019-02-20 14:12 | disposition swing bed (61) | DRG 193 ==
LOC: ERS 15:58 → ERHOLD 21:57 → T4-A 02-17 14:51
PROVIDERS: ADMIT Internal Medicine; ATTEND Internal Medicine
DX: J18.9 Pneumonia, unspecified organism (principal); J96.21 Acute and chronic respiratory failure with hypoxia; J44.1 Chronic obstructive pulmonary disease with (acute) exacerbation; N39.0 Urinary tract infection, site not specified; E44.1 Mild protein-calorie malnutrition; J44.0 Chronic obstructive pulmonary disease with (acute) lower respiratory infection; Z66 Do not resuscitate; F17.210 Nicotine dependence, cigarettes, uncomplicated; I25.10 Atherosclerotic heart disease of native coronary artery without angina pectoris; I25.2 Old myocardial infarction; I10 Essential (primary) hypertension; E78.5 Hyperlipidemia, unspecified; E03.9 Hypothyroidism, unspecified; Z90.49 Acquired absence of other specified parts of digestive tract; Z88.0 Allergy status to penicillin; Z79.899 Other long term (current) drug therapy; Z95.1 Presence of aortocoronary bypass graft; Z90.710 Acquired absence of both cervix and uterus; Z68.25 Body mass index [BMI] 25.0-25.9, adult
CPT/HCPCS: 36415; 71045; 74177; 80053; 81003; 81015; 83605; 83690; 84484; 85025; 87040; 87149; 93005; 94640; 94667; 94668; J0456; J1650; J1956; J2270; J2405; J2920; J7512; J7620; Q9966

== ENCOUNTER 2019-10-23 14:09 | Inpatient (IN) | payer MEDICARE, MEDICAID ==
[~2019-10-23 14:09] MED LIST changes: -ISOVUE-370 76%-LOCM 1 ML ONE; +Iopamidol-370 76% 500 ML 1 ML ONE
[2019-10-23 15:20] LABS: #Eosinphils 0.1 thou/uL (0.0-0.7); #Lymphocytes 0.9 thou/uL (1.20-3.40); #Monocytes 0.6 thou/uL (0.11-0.59); #Neutrophils 6.6 thou/uL (1.40-6.50); %Basophils 0.5 % (0.0-1.0); %Eosinophils 1.7 % (0.0-10.0); %Lymphocytes 11.3 % (21.0-51.0); %Monocytes 7.5 % (0.0-10.0); %Neutrophils 78.9 % (42.0-75.0); Hemoglobin 11.2 g/dL (12.0-16.0); Mean Corpuscular HGB CONC 33.2 g/dL (32.0-36.0); Mean Corpuscular Hemoglobin 32.4 pg (27.0-31.0); Mean Corpuscular Volume 97.7 fL (78.0-98.0); Mean Platelet Volume 8.3 fL (7.4-10.4); Platelet Count 246 thou/uL (130-400); RBC Distribution Width 13.2 % (11.5-14.5); Red Blood Cell (RBC) Count 3.44 mill/uL (4.20-5.40); White Blood Cell (WBC) Count 8.3 thou/uL (4.8-10.8)
[2019-10-23 15:26] LABS: PTT 29.3 SEC (22.9-36.1); Prothrombin Time 13.1 SEC (12.0-14.7)
[2019-10-23 15:41] LABS: ALT (SGPT) Less than 7 U/L (8-55); AST (SGOT) 16 U/L (5-34); Albumin 3.8 g/dL (3.4-4.8); Alkaline Phosphatase 76 U/L (40-110); Anion Gap 10 mmol/L (10-20); BUN (Urea Nitrogen) 20 mg/dL (9.8-20.1); Bilirubin, Total 0.3 mg/dL (0.2-1.2); Calc. Creatinine Clearance 0 mL/min (70-130); Calcium 9.3 mg/dL (7.8-10.44); Carbon Dioxide 28 mmol/L (23-31); Chloride 107 mmol/L (98-107); Estimated GFR-MDRD 68; Globulin 2.6 g/dL (2.4-3.5); Glucose 91 mg/dL (83-110); Potassium 4.3 mmol/L (3.5-5.1); Protein, Total 6.4 g/dL (6.0-8.3); Sodium 141 mmol/L (136-145)
--- NOTE | 2019-10-23 15:42 | RAD ---
Exam: Chest one view HISTORY:Cough Comparison: 02/16/2019 FINDINGS: Cardiac silhouette:Upper normal Aorta: Atherosclerosis and elongation Pulmonary vessels: Normal Costophrenic angles: Clear LUNGS: Hyperinflation. Chronic changes. No masses or consolidation. Pneumothorax: None Osseous abnormalities: None IMPRESSION: No acute cardiopulmonary process.
[2019-10-23 16:02] LABS: CKMB 3.1 ng/mL (0-6.6)
--- NOTE | 2019-10-23 16:55 | CT ---
CT PULMONARY ANGIOGRAM WITH IV CONTRAST AND 3-D POSTPROCESSING: HISTORY:Chest pain FINDINGS: There is good contrast opacification of the pulmonary arterial vasculature without filling defects to suggest pulmonary embolism. The thoracic aorta is well opacified without aneurysm or dissection. No pleural or pericardial effusions are seen. Emphysematous changes are present. There is a 4 x 4 0.2 x 3.3 cm solid mass in the left lower lobe, 9 mm satellite nodule inferior to this mass and a 9 mm solid nodule in the right lower lobe. Mild reticular-nodular infiltrate is seen in the right middle lobe. There are degenerative changes in the spine. Upper abdominal tomograms demonstrate renal cysts and cholelithiasis.. IMPRESSION: 1. No CT evidence of pulmonary embolism. 2. Findings suspicious for lung malignancy/metastatic disease. Further correlation with PET scan is r ecommended.
[2019-10-23] MEDS ORDERED: hydrALAZINE 20 MG/ML VIAL SLOW IVP PRN (19:10)
[2019-10-23] MEDS: guaiFENesin/Codeine Phosphate 200 mg/20 mg 10 ml UD Cup PO SCH (21:53)
[2019-10-23] MEDS: Dextrose 5 %-0.45 % NaCl 1,000 ML IV SCH (21:55)
[2019-10-23 22:28] LABS: Troponin I 0.049 ng/mL (< 0.028)
--- NOTE | 2019-10-24 00:27 | HP ---
REASON FOR ADMISSION: Hemoptysis. HISTORY OF PRESENT ILLNESS: This is an 83-year-old female patient who is known to have end-stage COPD, on home on home oxygen. She presents today for episodes of coughing up blood. She said that for the past 2 weeks, she has been feeling that her sputum is a bit runny, but never expectorated it until today she held a napkin and coughing in it and so brianna fresh blood on the napkin. Then she tried her best to stop coughing, thinking that this will help with the bleeding, which did it seems and whenever she coughed, she had blood-tinged sputum. No further episodes of coughing up brianna blood. The patient is chronically short of breath and has a chronic cough. She claims that there is no change in those to symptoms. Her shortness of breath is not worse and her cough other than the fact that she is coughing up blood, her cough is the same. On reviewing her records, the patient was admitted to our hospital approximately 8 months ago, she was diagnosed with COPD exacerbation and left lower lobe pneumonia. At that time, she was discharged on Levaquin and since then, she has been doing fairly well as per her until recently. PAST MEDICAL HISTORY: 1. COPD, on 3 L of oxygen at home via nasal cannula. 2. Documented coronary artery disease. 3. Documented hypertension. 4. High cholesterol. 5. Possible GERD. 6. Hypothyroidism. PAST SURGICAL HISTORY: 1. Appendectomy. 2. CABG. 3. Hysterectomy. 4. Tonsillectomy. 5. Polypectomy. SOCIAL HISTORY: She continues to smoke. She does not drink alcohol. FAMILY HISTORY: Reviewed, found to be noncontributory. ALLERGIES: PENICILLIN, BISOPROLOL, AND HYDROCHLOROTHIAZIDE. REVIEW OF SYSTEMS: The patient does report severe weight loss. All other systems reviewed except for the above-mentioned, found to be negative. PHYSICAL EXAMINATION: GENERAL: She is awake, alert, oriented, does appear short of breath, but as per her that is normal. VITAL SIGNS: Her blood pressure is 131/60, her heart rate is 71, saturating 95% on 3 L nasal cannula. HEENT: Head is nontraumatic, normocephalic. Pupils equal, reactive. Extraocular movements are intact. Nonicteric sclerae. Well injected conjunctivae. Oral mucosa normal. Nasal mucosa normal. NECK: Supple. No adenopathy. No murmur. Thyroid palpable. Trachea is midline. No supraclavicular adenopathy. CARDIAC: S1 and S2, regular. No murmurs. No gallops. No friction rubs noted. No displacement of PMI. LUNGS: Decreased air entry bilaterally. ABDOMEN: Bowel sounds are positive. Nontender abdomen. No hepatosplenomegaly. EXTREMITIES: No lower extremity edema. No cyanosis. NEUROLOGICAL: Cranial nerves 2 through 12 within normal limit. Normal motor function. Normal sensory function. Normal reflexes. LABORATORY DATA: Blood work shows a sodium of 141, potassium of 4.3, bicarb 28, BUN 20, creatinine 0.81. Troponin 0.047. WBC 8.3, hemoglobin 11.3, platelets of 246. INR 1, PTT 29.3. CT of the chest shows no evidence of PE. Findings suspicious for lung malignancy/metastatic disease. Further correlation with PET scan is recommended. EKG shows normal sinus rhythm, nonspecific EKG changes. ASSESSMENT AND PLAN: This is an 83-year-old female patient presenting with hemoptysis. CAT scan did reveal pulmonary nodules suspicious for malignancy, she continues to smoke. 1. Pulmonary. The patient will be on neb treatments. We will continue her Spiriva. She will be on cough suppressive therapy as scheduled, Robitussin with codeine to suppress her cough and this will help to prevent her from further having episodes of hemoptysis. She will be advised on smoking cessation. I will consult Pulmonology to further assess the finding on CAT scan. 2. For deep vein thrombosis prophylaxis, should be on SCDs. 3. GI. The patient to be kept n.p.o. for now in case her hemoptysis recurs and gets worse and she needs some type of intervention. On the other hand, she does have history of gastroesophageal reflux disease, and we will start her on GI prophylaxis. We will ask computer engineer to see her, so when she starts her diet, she should be on appropriate amount of calories since she has been losing weight. 4. We will resume her medications when med rec is done. 5. I did discuss with her, her code status and she wishes to be a do not resuscitate. Job ID: [id number]
[2019-10-24] MEDS: guaiFENesin/Codeine Phosphate 200 mg/20 mg 10 ml UD Cup PO SCH ×4 (01:47→20:18)
[2019-10-24 04:52] LABS: #Eosinphils 0.2 thou/uL (0.0-0.7); #Lymphocytes 1.5 thou/uL (1.20-3.40); #Monocytes 0.6 thou/uL (0.11-0.59); #Neutrophils 4.5 thou/uL (1.40-6.50); %Basophils 0.7 % (0.0-1.0); %Eosinophils 2.4 % (0.0-10.0); %Lymphocytes 22.1 % (21.0-51.0); %Monocytes 8.2 % (0.0-10.0); %Neutrophils 66.6 % (42.0-75.0); Hemoglobin 10.2 g/dL (12.0-16.0); Mean Corpuscular HGB CONC 32.9 g/dL (32.0-36.0); Mean Corpuscular Hemoglobin 32.1 pg (27.0-31.0); Mean Corpuscular Volume 97.7 fL (78.0-98.0); Mean Platelet Volume 8.3 fL (7.4-10.4); Platelet Count 215 thou/uL (130-400); RBC Distribution Width 13.3 % (11.5-14.5); Red Blood Cell (RBC) Count 3.19 mill/uL (4.20-5.40); White Blood Cell (WBC) Count 6.8 thou/uL (4.8-10.8)
[2019-10-24 05:45] LABS: Anion Gap 8 mmol/L (10-20); BUN (Urea Nitrogen) 16 mg/dL (9.8-20.1); Calc. Creatinine Clearance 43 mL/min (70-130); Carbon Dioxide 30 mmol/L (23-31); Chloride 108 mmol/L (98-107); Estimated GFR-MDRD 75; Glucose 86 mg/dL (83-110); Potassium 3.9 mmol/L (3.5-5.1); Sodium 142 mmol/L (136-145)
[2019-10-24] MEDS ORDERED: FLU VACC TS2019-20(65YR UP)/PF 180 MCG/0.5 ML SYRINGE IM ONE (09:00)
[2019-10-24] MEDS ORDERED: Ondansetron ODT 4 MG TAB PO PRN (09:18)
[2019-10-24] MEDS ORDERED: Azelastine 137 MCG/Spray 30 ML NS PRN (09:18)
[2019-10-24] MEDS ORDERED: Loratadine 10 MG TAB PO PRN (09:18)
[2019-10-24] MEDS ORDERED: guaiFENesin ER 600 MG TAB PO PRN (09:18)
[2019-10-24] MEDS ORDERED: Acetaminophen 325 MG TAB PO PRN (09:18)
[2019-10-24] MEDS ORDERED: Levothyroxine Sodium 50 MCG TAB PO SCH (09:30)
[2019-10-24] MEDS ORDERED: Loratadine 10 MG TAB PO SCH (09:30)
--- NOTE | 2019-10-24 09:41 | PDOC.HOSPP ---
- Subjective Encounter Date: 10/24/19 Encounter Time: 09:39 Subjective: Doing fine. No further hemoptysis. No SOB or significant cough. Has not eaten since the day before yesterday. Very much wants to eat. - Objective Vital Signs & Weight: Vital Signs (12 hours) Temp Pulse Resp BP BP BP Pulse Ox 10/24/19 06:53 98 10/24/19 06:52 73 16 98 10/24/19 04:00 98.3 F 78 20 107/57 L 99 10/24/19 01:00 82 20 106/57 L 97 10/24/19 00:17 67 16 99 10/23/19 22:06 87 20 96 10/23/19 21:54 91 177/98 H Weight Weight 103 lb 1.6 oz I&O: 10/23/19 10/24/19 10/25/19 06:59 06:59 06:59 Intake Total 870 Balance 870 Result Diagrams: 10/24/19 04:21 10/24/19 04:21 Hospitalist ROS - Medication Medications: Active Medications Generic Name Dose Route Start Last Admin Trade Name Freq PRN Reason Stop Dose Admin Albuterol/Ipratropium 3 ml 10/23/19 19:00 10/24/19 06:52 Duoneb NEB 3 ml [id number] JUNIE Administration Albuterol/Ipratropium 3 ml 10/23/19 18:51 10/23/19 22:28 Duoneb NEB Not Given Q2HR JUNEI Guaifenesin/Codeine Phosphate 5 ml 10/23/19 20:00 10/24/19 01:47 Robitussin Ac PO 5 ml 0200,0800,1400,2000 JUNIE Administration Hydralazine HCl 5 mg 10/23/19 19:10 10/23/19 21:54 Apresoline SLOW IVP 5 mg Q4H PRN Administration SBP GREATER THAN 160 Dextrose/Sodium Chloride 1,000 mls @ 75 mls/hr 10/23/19 19:15 10/23/19 21:55 D5 1/2 Ns IV 1,000 mls .[id number] JUNIE Administration - Exam General Appearance: NAD, awake alert Neck: supple, symmetric, no JVD, no thyromegaly, no lymphadenopathy, no carotid bruit Heart: RRR, no murmur, no gallops, no rubs, normal peripheral pulses Respiratory: CTAB, no wheezes, no rales, no ronchi, normal chest expansion, no tachypnea, normal percussion Respiratory - other findings: Diminished Gastrointestinal: soft, non-tender, non-distended, normal bowel sounds, no palpable masses, no hepatomegaly, no splenomegaly, no bruit Extremities: no cyanosis, no clubbing, no edema Skin: normal turgor Neurological: no focal deficits Musculoskeletal: normal tone, normal strength, no muscle wasting Psychiatric: normal affect, normal behavior, A&O x 3 Hosp A/P (1) Lung mass Code(s): R91.8 - OTHER NONSPECIFIC ABNORMAL FINDING OF LUNG FIELD Status: Acute (2) Hemoptysis Code(s): R04.2 - HEMOPTYSIS Status: Acute (3) COPD (chronic obstructive pulmonary disease) Status: Acute (4) Allergic rhinitis Code(s): J30.9 - ALLERGIC RHINITIS, UNSPECIFIED Status: Acute (5) CAD (coronary artery disease) Code(s): I25.10 - ATHSCL HEART DISEASE OF [place] CORONARY ARTERY W/O ANG PCTRS Status: Chronic (6) HLD (hyperlipidemia) Code(s): E78.5 - HYPERLIPIDEMIA, UNSPECIFIED Status: Chronic (7) HTN (hypertension) Code(s): I10 - ESSENTIAL (PRIMARY) HYPERTENSION Status: Chronic (8) Hypothyroidism Code(s): E03.9 - HYPOTHYROIDISM, UNSPECIFIED Status: Acute - Plan I will go ahead and let her eat today. She likely needs some nutrition in the short-term. Pulmonary consult. Schedule CT guided lung mass biopsy. Not sure we can get that done until Saturday. Continue nebs. Resume other home meds for thyroid, htn, hld.
[2019-10-24] MEDS: Levothyroxine Sodium 50 MCG TAB PO SCH (11:12)
[2019-10-24] MEDS: Dextrose 5 %-0.45 % NaCl 1,000 ML IV SCH ×2 (11:14→21:06)
[2019-10-24] MEDS ORDERED: Sodium Chloride 0.9% 10 ML ONE (12:17)
[2019-10-24 12:34] VITALS: BMI 20.1
--- NOTE | 2019-10-24 12:35 | CON ---
DATE OF CONSULTATION: HISTORY OF PRESENT ILLNESS: Peggy Billy is an 83-year-old female, lifelong smoker, who presented with hemoptysis as she coughed up a tablespoon of bright red blood. CT chest showed a left lower lung mass. She has been admitted. She was recently discharged from the hospital, saw Dr. Wheat in our office. Discharge diagnosis was COPD exacerbation. Pneumonia of left lower lung. She can barely walk on her good day even 20 feet without getting markedly short of breath, constant wheezing causing her shortness of breath. PAST MEDICAL HISTORY: COPD, UTI, hypertension, coronary artery disease, reflux, dyslipidemia. HOME MEDICATIONS: Include; 1. Mucinex. 2. Symbicort 160. 3. Synthroid 50. 4. Amlodipine 5. 5. Lasix 20. 6. Spiriva. 7. Pravastatin. ALLERGIES: PENICILLIN, HYDROCHLOROTHIAZIDE. REVIEW OF SYSTEMS: Otherwise, pertinent for significant weight loss. PHYSICAL EXAMINATION: GENERAL: Cachectic female, who has oxygen in the mouth. VITAL SIGNS: Temperature 98, pulse 73, respirations 20, saturations are 98 on 4 L, blood pressure 107/57. CHEST: Decreased breath sounds. Prolonged expiration, wheezing. CARDIAC: Sinus tach. ABDOMEN: Soft. LABORATORY DATA: White count 6000, hemoglobin and hematocrit are 10 and 31, platelet count are normal. ASSESSMENT: 1. Left lower lung mass, bronchogenic carcinoma. 2. Hemoptysis end-stage chronic obstructive pulmonary disease, on long-term oxygen with ongoing tobacco abuse. 3. Coronary artery disease. PLAN: Until her pulmonary status is stabilized, we will not do any biopsy. Once she has improved, can decide which is the best option to biopsy, either bronchoscopy or CT-guided biopsy considering her fragile situation. I have started nebs, steroids, empiric antibiotics. We will notify Dr. Wheat on Saturday. Job ID: [id number]
[2019-10-24] MEDS: methylPREDNISolone Sod Succ 40 MG VIAL IVP SCH (16:59)
[2019-10-24] MEDS: Mometasone/Formoterol 120 PUFF INHALER INH SCH (18:40)
[2019-10-24] MEDS: Acetaminophen/Codeine 30-300mg Tablet PO PRN (20:18)
[2019-10-24] MEDS: Atorvastatin Calcium 10 MG TAB PO SCH (20:18)
[2019-10-24] MEDS: Fluticasone Propionate Nasal Spray 16 gm Bottle NASAL SCH (20:20)
[2019-10-25] MEDS: Dextrose 5 %-0.45 % NaCl 1,000 ML IV SCH (01:08)
[2019-10-25] MEDS: guaiFENesin/Codeine Phosphate 200 mg/20 mg 10 ml UD Cup PO SCH ×4 (01:09→21:12)
[2019-10-25] MEDS: methylPREDNISolone Sod Succ 40 MG VIAL IVP SCH ×4 (01:09→17:23)
[2019-10-25 04:58] LABS: Troponin I 0.026 ng/mL (< 0.028)
[2019-10-25] MEDS: Mometasone/Formoterol 120 PUFF INHALER INH SCH ×2 (06:59→18:44)
[2019-10-25] MEDS ORDERED: Non-Formulary Item 1 EACH (Tiotropium [Spiriva Handihaler] 18 MCG) INH SCH (09:00)
[2019-10-25] MEDS: Furosemide 20 MG TAB PO SCH (09:11)
[2019-10-25] MEDS: Fluticasone Propionate Nasal Spray 16 gm Bottle NASAL SCH ×2 (09:13→21:14)
--- NOTE | 2019-10-25 12:35 | PRG ---
DATE OF SERVICE: 10/25/2019 SUBJECTIVE: This morning, she is doing better, less short of breath, less cough, no further hemoptysis. OBJECTIVE: VITAL SIGNS: Temperature respiratory rate 20, , blood pressure 119/61. CHEST: Wheezing, left greater than right. CARDIAC: Normal S1 and S2. No gallops. ABDOMEN: No masses. ASSESSMENT AND PLAN: 1. Right lower lung bronchogenic carcinoma. 2. Hemoptysis. 3. Chronic obstructive pulmonary disease. May be switched over to oral prednisone tomorrow. Discussed with Dr. Wheat regarding ongoing sampling with bronchoscopy versus CT-guided biopsy. Job ID: [id number]
--- NOTE | 2019-10-25 14:38 | PDOC.HOSPP ---
- Subjective Subjective: Feels ok. No complaints. Feels like she is breathing fairly normally. - Objective Vital Signs & Weight: Vital Signs (12 hours) Temp Pulse Resp BP Pulse Ox 10/25/19 12:00 97.7 F 88 20 114/68 95 10/25/19 10:33 80 18 96 10/25/19 08:00 97.6 F 92 22 H 137/92 H 95 10/25/19 06:58 87 18 96 10/25/19 04:00 97.8 F 80 20 119/61 91 L Weight Admit Weight 103 lb 1.6 oz Weight 103 lb 1.6 oz I&O: 10/24/19 10/25/19 10/26/19 06:59 06:59 06:59 Intake Total 870 1814 Output Total 400 Balance 870 1414 Result Diagrams: 10/24/19 04:21 10/24/19 04:21 Hospitalist ROS - Medication Medications: Active Medications Generic Name Dose Route Start Last Admin Trade Name Freq PRN Reason Stop Dose Admin Acetaminophen/Codeine Phosphate 1 tab 10/24/19 09:18 10/24/19 20:18 Tylenol #3 PO 1 tab Q6H PRN Administration Mild-Moderate Pain (1-5) Albuterol/Ipratropium 3 ml 10/24/19 15:00 10/25/19 10:33 Duoneb NEB 3 ml [id number] JUNIE Administration Atorvastatin Calcium 10 mg 10/24/19 21:00 10/24/19 20:18 Lipitor PO 10 mg HS JUNIE Administration Fluticasone Propionate 0 gm 10/24/19 21:00 10/25/19 09:13 Flonase Nasal [place] NASAL 1 spr BID JUNIE Administration Furosemide 20 mg 10/25/19 09:00 10/25/19 09:11 Lasix PO 20 mg DAILY JUNIE Administration Guaifenesin/Codeine Phosphate 5 ml 10/23/19 20:00 10/25/19 14:03 Robitussin Ac PO 5 ml 0200,0800,1400,2000 JUNIE Administration Hydralazine HCl 5 mg 10/23/19 19:10 10/23/19 21:54 Apresoline SLOW IVP 5 mg Q4H PRN Administration SBP GREATER THAN 160 Dextrose/Sodium Chloride 1,000 mls @ 75 mls/hr 10/23/19 19:15 10/25/19 01:08 D5 1/2 Ns IV 1,000 mls .[id number] JUNIE Administration Levofloxacin 500 mg 10/25/19 06:00 10/25/19 06:26 Levaquin PO 500 mg 0600 JUNIE Administration Levothyroxine Sodium 50 mcg 10/25/19 06:00 10/24/19 11:12 Synthroid PO 50 mcg 0600 JUNIE Administration Loratadine 10 mg 10/24/19 09:18 10/24/19 20:18 Claritin PO 10 mg DAILYPRN PRN Administration Sinus Symptoms Methylprednisolone Sodium Succinate 40 mg 10/24/19 18:00 10/25/19 11:47 Solu-Medrol IVP 40 mg Q6HR JUNIE Administration Mometasone Furoate/Formoterol Fumar 1 puff 10/24/19 18:30 10/25/19 06:59 Dulera 100 Mcg/5 Mcg Inhaler INH 1 puff BID-RT JUNIE Administration Pantoprazole Sodium 40 mg 10/24/19 09:00 10/25/19 09:11 Protonix PO 40 mg DAILY JUNIE Administration - Exam General Appearance: NAD, awake alert Neck: supple, symmetric, no JVD, no thyromegaly, no lymphadenopathy, no carotid bruit Heart: RRR, no murmur, no gallops, no rubs, normal peripheral pulses Respiratory: CTAB, no wheezes, no ronchi, normal chest expansion, no tachypnea Respiratory - other findings: Diminished. Mild bibasilar rales. Gastrointestinal: soft, non-tender, non-distended, normal bowel sounds, no palpable masses, no hepatomegaly, no splenomegaly, no bruit Extremities: no cyanosis, no clubbing, no edema Neurological: no focal deficits Musculoskeletal: normal tone Psychiatric: normal affect, normal behavior, A&O x 3 Hosp A/P (1) Lung mass Code(s): R91.8 - OTHER NONSPECIFIC ABNORMAL FINDING OF LUNG FIELD Status: Acute (2) Hemoptysis Code(s): R04.2 - HEMOPTYSIS Status: Acute (3) COPD (chronic obstructive pulmonary disease) Status: Acute (4) Allergic rhinitis Code(s): J30.9 - ALLERGIC RHINITIS, UNSPECIFIED Status: Acute (5) CAD (coronary artery disease) Code(s): I25.10 - ATHSCL HEART DISEASE OF [place] CORONARY ARTERY W/O ANG PCTRS Status: Chronic (6) HLD (hyperlipidemia) Code(s): E78.5 - HYPERLIPIDEMIA, UNSPECIFIED Status: Chronic (7) HTN (hypertension) Code(s): I10 - ESSENTIAL (PRIMARY) HYPERTENSION Status: Chronic (8) Hypothyroidism Code(s): E03.9 - HYPOTHYROIDISM, UNSPECIFIED Status: Acute - Plan Anticipate biopsy tomorrow. Schedule CT guided lung mass biopsy for tomorrow. Will discuss with Dr. Mary Alice gonzalez in the morning. Continue nebs. Resume other home meds for thyroid, htn, hld.
[2019-10-25] MEDS: Atorvastatin Calcium 10 MG TAB PO SCH (21:11)
[2019-10-25] MEDS: Acetaminophen/Codeine 30-300mg Tablet PO PRN (21:13)
[2019-10-26] MEDS: methylPREDNISolone Sod Succ 40 MG VIAL IVP SCH ×3 (01:06→12:57)
[2019-10-26] MEDS: guaiFENesin/Codeine Phosphate 200 mg/20 mg 10 ml UD Cup PO SCH ×3 (01:06→12:56)
[2019-10-26] MEDS: Levothyroxine Sodium 50 MCG TAB PO SCH (05:51)
[2019-10-26] MEDS: Mometasone/Formoterol 120 PUFF INHALER INH SCH (07:07)
[2019-10-26] MEDS: Furosemide 20 MG TAB PO SCH (09:08)
[2019-10-26] MEDS: Fluticasone Propionate Nasal Spray 16 gm Bottle NASAL SCH (09:09)
[2019-10-26] MEDS ORDERED: Sodium Bicarbonate 2.5 MEQ/5 ML VIAL ONE (11:43)
[2019-10-26] MEDS ORDERED: Fentanyl 100 MCG/2 ML VIAL ONE (11:43)
[2019-10-26] MEDS ORDERED: Midazolam HCl 2 mg/2 ml Vial ONE (11:43)
--- NOTE | 2019-10-26 12:37 | RAD ---
Chest AP view INDICATION: Status post lung biopsy COMPARISON: Prior chest radiograph dated October 23, 2019 FINDINGS: Lungs:Large left lower lobe lung mass persists. There is increasing atelectasis and/or hemorrhage in the left lower lobe. Cardiac silhouette:Cardiomegaly and post-CABG changes stable Pulmonary vasculature:Normal Pleural spaces:No pneumothorax is demonstrated. Upper abdomen:No abnormality seen. Osseous structures: No acute osseous abnormality. Additional findings:None. IMPRESSION: No pneumothorax. Stable left lower lobe lung mass. Increasing atelectasis and/or hemorrha ge within the left lower lobe. This is likely postprocedural in nature. Continued follow-up is recommended.
[2019-10-26] MEDS: Acetaminophen/Codeine 30-300mg Tablet PO PRN (13:01)
--- NOTE | 2019-10-26 13:34 | CT ---
CT-guided biopsy left lung mass Conscious sedation: At least 20 minutes spent with the patient for conscious sedation. FINDINGS: After explaining the procedure and answering all questions, limited CT imaging was performe d with the patient prone. Sterile technique, buffered local anesthesia, conscious sedation, CT guidance, and a left posterolateral approach were used to carefully advance a 19-gauge trocar needle into a lobular mass in the left lower lobe. Position confirmed with CT. A total of 4 20-gauge core biopsy specimens were obtained and eventually submitted to pathology for e valuation. Needle was removed. No evidence of pneumothorax. Patient tolerated the procedure well and was returned in unchanged condition. IMPRESSION: Technically successful CT-guided biopsy left lung mass. Pathology is pending.
--- NOTE | 2019-10-26 14:32 | RAD ---
Chest one view HISTORY: Lung mass with biopsy. COMPARISON: Earlier exam on the same date. FINDINGS: Lungs remain hyperinflated. Lung markings extend beyond skinfolds at the inferior lateral a spect of each hemithorax that mimics pneumothoraces. Left lung base mass is again demonstrated. Adjacent parenchymal opacity is less pronounced. No evidence of pneumothorax. Other findings are stable. IMPRESSION: No evidence of postbiopsy pneumothorax.
[2019-10-26 17:18] VITALS: BP 108/63; TEMP 97.9
--- NOTE | 2019-10-27 13:53 | DIS ---
DATE OF ADMISSION: 10/23/2019 DATE OF DISCHARGE: 10/26/2019 DISCHARGE DIAGNOSES: 1. Left lower lobe lung mass. 2. Hemoptysis. 3. Emphysema. 4. Coronary artery disease. 5. Hypertension. 6. Hyperlipidemia. 7. Hypothyroidism. 8. Allergic rhinitis. HISTORY OF PRESENT ILLNESS: This patient is an 84-year-old female, who has a history of longstanding tobacco abuse, who developed an episode of hemoptysis and presented to the emergency department. Apparently, it was an isolated episode; however, CTA of the chest at that time revealed a 4 x 4 x 3.3 cm left lower lobe lung mass with 9 mm satellite lesions in the left and right lower lobes. This was concerning for malignancy. The patient was placed in the hospital with an anticipation of lung biopsy; however, given the weekend unfortunately, the patient had to wait a couple of days in order to get that accomplished. In the meantime, she did quite well, had no further hemoptysis and was otherwise stable. Pulmonology was consulted; however, there were no significant additional recommendations. The patient subsequently underwent a CT-guided lung biopsy on 10/26/2019, which was successful. Followup chest x-ray showed no evidence of pneumothorax. The patient felt well and was felt to be stable for discharge home. PHYSICAL EXAMINATION: VITAL SIGNS: On the day of discharge, temperature was 97.9, pulse 87, respirations 16, O2 saturation 93% on room air, BP was 108/63. GENERAL: She was awake and alert. HEART: Regular. LUNGS: Very diminished with some scattered rales. ABDOMEN: Benign. EXTREMITIES: Had no edema. DISPOSITION: The patient is discharged to home. ACTIVITY: As tolerated. DIET: She will be on a heart healthy diet. DISCHARGE MEDICATIONS: She will remain on her usual home medications, which will be unchanged. These include; 1. Levothyroxine 50 mcg p.o. daily. 2. Spiriva 18 mcg inhaled daily. 3. Symbicort 160/4.5 two puffs b.i.d. 4. Albuterol 2 puffs q.4 hours p.r.n. 5. Tylenol No. 3 p.r.n. 6. Zofran p.r.n. 7. Lasix 20 mg daily. 8. Livalo 2 mg daily. 9. Tylenol p.r.n. 10. Loratadine 10 mg daily p.r.n. 11. Guaifenesin ER p.r.n. 12. Azelastine one spray per nostril daily as needed. FOLLOWUP: She will follow up with Dr. Wheat and Dr. Shahram Wolfe. She can return to the hospital at any time if she has any need to do so. 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 TIME SPENT: Time in discharge activities was 31 minutes. Job ID: [id number]
--- NOTE | 2019-10-28 08:18 | PQF ---
TRENT STROUD DAVID R MD [id number] CLINICAL DOCUMENTATION CLARIFICATION FORM: POST DISCHARGE Addendum to original discharge summary date: ____ Late entry note date: __ DATE:10/28/2019 ATTN: BRAYAN ESTES MD Please exercise your independent, professional judgment in responding to the clarification form. Clinical indicators are provided on the bottom of this form for your review Final Diagnosis on the Pathology report: Lung left lower lobe core biopsy: Invasive adenocarcinoma Progress Notes indicate: Lung mass Clarification of Pathology report: Please check appropriate box(s): [ ] Agree w the pathology finding of: [ ] Other explanation of pathology findings (please specify) [ ] Other diagnosis [ ] Unable to determine The pathology report was not available at the time of discharge. Defer to Dr. Niño. For continuity of documentation, please document condition throughout progress notes and discharge summary. Thank You. CLINICAL INDICATORS - SIGNS/ SYMPTOMS / LABS Lung mass,Hemoptysis,COPD-Documented in Hospitalist progress note on 10/25 by Brayan Estes Right lower lung bronchogenic carcinoma-Documented in progress note on 10/[address]-guided biopsy left lung mass on 10/26 (This form is maintained as a part of the permanent medical record) 2014 [employer]. All Rights Reserved [email or web address] [not provided] MTDD
== END 2019-10-26 17:46 | disposition home or self-care (01) | DRG 204 ==
LOC: ERS 14:09 → 2NO 17:34
PROVIDERS: ADMIT Internal Medicine; ATTEND Internal Medicine
PROC: 0BBJ3ZX Excision of Left Lower Lung Lobe, Percutaneous Approach, Diagnostic (ICD-10-PCS; principal; 2019-10-26)
DX: R91.8 Other nonspecific abnormal finding of lung field (principal); R04.2 Hemoptysis; J44.9 Chronic obstructive pulmonary disease, unspecified; J30.9 Allergic rhinitis, unspecified; I25.10 Atherosclerotic heart disease of native coronary artery without angina pectoris; E78.5 Hyperlipidemia, unspecified; F17.210 Nicotine dependence, cigarettes, uncomplicated; K21.9 Gastro-esophageal reflux disease without esophagitis; I10 Essential (primary) hypertension; E03.9 Hypothyroidism, unspecified; I25.2 Old myocardial infarction; Z90.710 Acquired absence of both cervix and uterus; Z95.1 Presence of aortocoronary bypass graft; Z87.440 Personal history of urinary (tract) infections; Z88.0 Allergy status to penicillin; Z88.8 Allergy status to other drugs, medicaments and biological substances
CPT/HCPCS: 32405; 36415; 71045; 71275; 77012; 80048; 80053; 82553; 84484; 85025; 85610; 85730; 88305; 88312; 88313; 88341; 88342; 90471; 90662; 93005; 94640; G0008; J0360; J2250; J2920; J3010; J7620; Q9967

== ENCOUNTER 2020-03-13 05:03 | Emergency (ER) | payer MEDICARE, MEDICAID ==
--- NOTE | 2020-03-13 08:56 | CT ---
PRELIMINARY REPORT/[facility]/EMERGENCY AFTER HOURS PROCEDURE: Receipt of this report by the clinical staff was confirmed with MIR STEWART MD by Bro boyd on March 13, 2020 06:26:00 CDT. Addendum electronically signed by Ani boyd on March 13, 2020 6:27:02 AM CDT PROCEDURE: CT Scan Abdomen and Pelvis without IV Contrast Material. HISTORY: Constipation. TECHNIQUE: Axial images were performed with multiplanar reconstructions without IV contrast material. The patient was not given oral contrast material. COMPARISON: 02/16/2019. FINDINGS: Interval appearance of a 3.6 cm LEFT lower and 1 cm RIGHT lower lobe masses suspicious for neoplasm a nd metastatic disease. Unchanged mild cardiomegaly. Linear scar versus discoid atelectasis lung bas es. Liver, spleen, and pancreas show no abnormality. Unchanged 1 cm LEFT adrenal nodule. Bilateral renetta l cortical cysts are unchanged with the largest on the RIGHT measuring 5 cm. No obstructive uropathy or urinary tract stones. Normal biliary tract. No abdominal ascites or pneumoperitoneum. Moderate atherosclerosis aorta with no aneurysm. No lymphadenopathy. Moderate feces in the rectum with thickened mucosa in perirectal stranding consistent with proctitis and mild constipation. Mild colonic diverticulosis. No bowel obstruction. Appendix is not visualiz ed. Pelvis shows no masses or free fluid with previous hysterectomy. Normal urinary bladder. No acute bony abnormality IMPRESSION: Proctitis and constipation. Colonic diverticulosis. Unchanged small LEFT adrenal nodule probably representing an adenoma. * Interval appearance of lung masses at the bases suspicious for metastatic disease and neoplasm. ELECTRONICALLY SIGNED BY: Héctor Live MD March 13, 2020 6:21:48 AM CDT This report is intended for review by the ordering physician only, in accordance of law. If you recei ve this report in error, please call [facility] at [phone]. FINAL REPORT CT ABDOMEN AND PELVIS WITHOUT CONTRAST STONE PROTOCOL: Date: 03/13/2020 HISTORY: Constipation. Terminal lung cancer. Lower abdominal pain. COMPARISON: CT abdomen and pelvis dated 02/28/2019. FINDINGS/IMPRESSION: Findings and impression are concordant with the preliminary report. POS: HOME
== END 2020-03-13 07:10 | disposition home or self-care (01) ==
LOC: ERS 05:03
DX: K59.00 Constipation, unspecified (principal); E78.5 Hyperlipidemia, unspecified; E78.00 Pure hypercholesterolemia, unspecified; J44.9 Chronic obstructive pulmonary disease, unspecified; F17.210 Nicotine dependence, cigarettes, uncomplicated; I25.2 Old myocardial infarction; I71.4 Abdominal aortic aneurysm, without rupture; E03.9 Hypothyroidism, unspecified; Z79.899 Other long term (current) drug therapy
CPT/HCPCS: 74176

== ENCOUNTER 2020-11-07 07:47 | Inpatient (IN) | payer MEDICARE, MEDICAID ==
[2020-11-07] MEDS ORDERED: Lorazepam 2 MG/ML VIAL ONE (08:00)
[2020-11-07] MEDS ORDERED: methylPREDNISolone Sod Succ/PF 125 MG/2 ML VIAL ONE (08:20)
[2020-11-07] MEDS ORDERED: Albuterol Sulfate 2.5 mg/3 ml Neb ONE (08:22)
[2020-11-07 08:30] LABS: Hemoglobin 7.5 g/dL (12.0-16.0); Mean Corpuscular HGB CONC 28.6 g/dL (32.0-36.0); Mean Corpuscular Hemoglobin 23.2 pg (27.0-31.0); Mean Corpuscular Volume 81.2 fL (78.0-98.0); Mean Platelet Volume 9.5 fL (7.4-10.4); Platelet Count 229 thou/uL (130-400); RBC Distribution Width 17.9 % (11.5-14.5); Red Blood Cell (RBC) Count 3.24 mill/uL (4.20-5.40); White Blood Cell (WBC) Count 19.6 thou/uL (4.8-10.8)
[2020-11-07 08:37] LABS: INR-International Normal Ratio 0.9; Prothrombin Time 12.5 sec (12.0-14.7)
[2020-11-07 08:51] LABS: ALT (SGPT) 11 U/L (8-55); AST (SGOT) 16 U/L (5-34); Albumin 3.1 g/dL (3.4-4.8); Alkaline Phosphatase 62 U/L (40-110); Anion Gap 18 mmol/L (10-20); BUN (Urea Nitrogen) 24 mg/dL (9.8-20.1); Bilirubin, Total 0.3 mg/dL (0.2-1.2); Calc. Creatinine Clearance 0 mL/min (70-130); Calcium 8.1 mg/dL (7.8-10.44); Carbon Dioxide 23 mmol/L (23-31); Chloride 104 mmol/L (98-107); Globulin 2.6 g/dL (2.4-3.5); Glucose 230 mg/dL (83-110); Potassium 4.6 mmol/L (3.5-5.1); Protein, Total 5.7 g/dL (6.0-8.3); Sodium 140 mmol/L (136-145)
--- NOTE | 2020-11-07 08:53 | RAD ---
XR Chest 1 View Portable History: Dyspnea Comparison: Radiograph December 2019 Findings: There is a right perihilar a millimeter and right lower lobe 15 mm pulmonary nodule. There are left upper lobe airspace opacities. Concern for enlargement of the left lower lobe lung mass. Cardiac silhouette and mediastinal contours are similar. Multiple midline sternotomy wires. Impression: 1. New left upper lobe airspace opacities concerning for infection. Follow-up recommended. 2. New right perihilar, right lower lobe, and enlarging left lower lobe lung masses.
[2020-11-07 08:55] LABS: Bilirubin Negative (Negative); Blood, Urine Negative (Negative); Clarity Clear (Clear); Glucose, Urine (Dipstick) 200 mg/dL (Negative); Ketone, Urine Negative (Negative); Leukocyte Negative Leu/uL (Negative); Nitrite Negative (Negative); Protein, Urine (Dipstick) Negative (Neg-Trace); Squamous Epithelial 0-3 HPF (0-3); Urobilinogen Normal mg/dL (Less than 2); WBC/HPF 0-3 HPF (0-3)
[2020-11-07] MEDS ORDERED: Acetaminophen 325 MG TAB ONE (08:57)
[2020-11-07] MEDS ORDERED: cefTRIAXone\\ROCEPHIN 2 GM VIAL ONE (08:57)
[2020-11-07 09:11] LABS: Band 21 % (5-11); Eosinophils 1 % (0-10); Lymphocytes 3 % (21-51); MDiff Complete? YES; Monocytes 3 % (0-10); Neutrophil 72 % (42-75); Platelet Morphology Comment Appears Adequate; Schistocytes SLIGHT = 2-5 cells (100X) (0-1/hpf)
[2020-11-07 09:23] LABS: Bacteria/HPF Rare-Few HPF (None Seen)
[2020-11-07] MEDS ORDERED: Iopamidol-370 76% 500 ML 1 ML ONE (09:27)
[2020-11-07] MEDS ORDERED: Ondansetron PF 4 MG/2 ML Vial IVP PRN (09:52)
[2020-11-07] MEDS ORDERED: Albuterol Sulfate 2.5 mg/3 ml Neb NEB PRN (09:52)
[2020-11-07 09:58] LABS: D-Dimer Test 9.38 *mcg/mL (0.27-0.43); PTT 23.5 sec (22.9-36.1)
[2020-11-07 10:01] LABS: SARS-CoV-2 NAA Rapid Test DETECTED (NotDetected)
[2020-11-07] MEDS ORDERED: Azithromycin 500 MG VIAL ONE (10:29)
[2020-11-07] MEDS ORDERED: Aspirin 325 MG TAB ONE (10:29)
--- NOTE | 2020-11-07 11:09 | HP ---
CHIEF COMPLAINT: Can't breathe. HISTORY OF PRESENT ILLNESS: This is an 85-year-old female with known history of COPD, on chronic oxygen therapy; lung cancer, not receiving treatment, who resides at a nursing facility, who presents here with difficulty breathing. The patient states she does not know when it started, but states her breathing was poor yesterday and worse today. She is unaware of any precipitating or relieving factors. In the emergency room, she was found to be hypoxic at 78% on a non-rebreather, and started on BiPAP. On the BiPAP, she reports her breathing feels better. She denies any nausea or vomiting, also denies any pain. In the emergency room, the patient also tachycardic at 113, her respiratory rate on presentation 34, found to have a left upper lobe pneumonia, as well as a COPD exacerbation. She has received Ativan 1 mg IV, Solu-Medrol 125 mg IV, DuoNeb, normal saline x2 L, ceftriaxone 2 g, Tylenol 650 mg, aspirin 324 mg, azithromycin 500 mg, and hospitalist called for admission. ALLERGIES: BISOPROLOL, HYDROCHLOROTHIAZIDE, PENICILLIN, ZIAC. CURRENT MEDICATIONS: Based on a list provided by the nursing facility: 1. Vitamin C 500 mg daily. 2. Diphenhydramine 25 mg two tablets every 8 hours as needed. 3. Dulcolax 10 mg suppository every 72 hours as needed. 4. Furosemide 20 mg daily. 5. Hyoscyamine 0.125 mg every 6 hours as needed for excess secretions. 6. DuoNeb every 4 hours as needed. 7. Lorazepam every 4 hours as needed 1 mg. 8. Milk of magnesia 5 mL two times a day for constipation. 9. MiraLAX 17 g once a day. 10. Morphine sulfate 20 mg/mL 1 mL at bedtime for pain and every 1 hour as needed for pain. 11. MS Contin 30 mg t.i.d. for pain or shortness of breath. 12. Multivitamin. 13. Naproxen 200 mg every 12 hours as needed. 14. Prednisone 10 mg four tablets daily. 15. Prostat 30 mL twice daily. 16. ProAir two puffs every 6 hours as needed. 17. Promethazine suppository 25 mg two suppositories every 4 hours as needed for nausea, vomiting. 18. Sennoside docusate one tablet twice a day. 19. Tylenol 325 mg two tablets every 6 hours as needed. 20. Tylenol 3 one tablet every 6 hours as needed. 21. Zofran 8 mg every 8 hours as needed. PAST MEDICAL HISTORY: 1. Lung cancer, for which the patient was not interested in treatment when she was hospitalized here in December 2019. By report, hospice was being considered. 2. Chronic respiratory failure with hypoxia and hypercapnia. 3. COPD. 4. Hypothyroidism. 5. Tobacco abuse. 6. Coronary artery disease. 7. Dyslipidemia. 8. Abdominal aortic aneurysm. 9. Hypertension. PAST SURGICAL HISTORY: 1. Appendectomy. 2. CABG x3 vessels. 3. Hysterectomy. 4. Tonsillectomy. 5. Lower lobe lung biopsy in October 2019. FAMILY HISTORY: Significant of father and sister who of complications of ruptured aneurysm. SOCIAL HISTORY: The patient is residing at [facility]. She reports being there since January. She has a long tobacco history. On the chart, it states that the patient is a do not resuscitate, however, when I asked her, she states she wants everything done to include breathing machines and life support if it is needed. On the chart Johnie Billy, her child, is listed as her next of kin. REVIEW OF SYSTEMS: The patient denies anything other than difficulty breathing. All remaining review of systems are checked. PHYSICAL EXAMINATION: VITAL SIGNS: Blood pressure 134/95, pulse 115, respirations 32, saturations 100% on BiPAP, temperature 100.6 rectal. GENERAL: She is awake, alert, able to answer questions. She is not in apparent distress. HEENT: Her pupils are equal and round. Her oral mucosa is dry. NECK: Supple, nontender. LYMPHATICS: No palpable cervical or supraclavicular lymphadenopathy. LUNGS: Poor air movement with increased work of breathing. No audible wheezing, rhonchi, or rales. HEART: Distant. heart sounds. No significant murmur. ABDOMEN: Soft, present bowel sounds. Nontender, nondistended. EXTREMITIES: No edema. SKIN: Patient has multiple areas of bruising on her legs and arms, some skin tears on her legs, especially the left knee. She denies falling. VASCULAR: 2+ radial pulses. NEURO: No focal deficits. PSYCH: Appears euthymic. LABORATORY DATA: Labs were reviewed. CBC; 19.6, 7.5, 26.3, 229. Her D-dimer 9.38, INR 0.9. Chemistry; 140, 4.6, 104, 23, 24, 0.8, 230. Lactic acid 3.7. LFTs; T-bilirubin 0.3, AST 16, ALT 11, alkaline phosphatase 62, total protein 5.7, albumin 3.1. Urine; present glucose, 4 to 6 red blood cells. COVID test is not resulted. IMAGING STUDIES: EKG, personally reviewed, sinus rhythm, normal axis, normal intervals, ST depression in V5, V6 with T-wave inversions, ST depression also in II and aVF. Chest x-ray is personally reviewed. Left upper lobe infiltrate, new right perihilar, right lower lobe and enlarging left lower lobe lung masses. IMPRESSION: 1. Pneumonia in a patient with chronic obstructive pulmonary disease exacerbation, known lung cancer with enlarging and new masses. 2. Elevated D-dimer in the setting of known lung cancer concerning for possible pulmonary embolism. 3. Chronic obstructive pulmonary disease with exacerbation. 4. Elevated troponin. 5. Acute on chronic anemia. 6. Hypothyroidism. 7. History of hypertension. 8. History of tobacco abuse. 9. Known coronary artery disease with EKG changes secondary to respiratory status. PLAN: 1. Admission to the [facility], continuing BiPAP therapy. 2. Pulmonology consultation. 3. We will change to cefepime and vancomycin as the patient is at high risk to include Pseudomonas coverage. 4. Obtain a CT angiogram to evaluate for PE. 5. Obtain COVID test results. 6. Steroids, nebulizer therapy. 7. Trend her troponin, hold on a cardiac evaluation given the overall difficult health picture. 8. Check her TSH with a history of hypothyroidism. 9. Check her iron, ferritin, B12 levels, and type and screen. With any decline in her hemoglobin given the overall picture, we will consider transfusion. 10. With any clarity around her code status, we will consult palliative care given that the patient is stating something different than the documentation. 11. DVT prophylaxis. We will use Lovenox. 12. GI prophylaxis. Given the high dose steroids, we will use famotidine. 13. Code status for now is full given the patient's responses to my questions. 14. The patient is at high risk with this overall picture of known lung cancer in the context of worsening breathing. 15. Reviewed the plan of care with the patient who demonstrates understanding and agrees. No questions or further needs at the end of evaluation. Addendum at 21:56 - since the dictation, COVID positive, and code status clarified as Do Not Resuscitate. Pt was on hospice services with [facility]. Will need to check on pt's/family's desire to resume services. Job ID: [id number] [facility]ENTER[facility]ateo
--- NOTE | 2020-11-07 11:32 | CT ---
CT angiogram chest with IV contrast and 3-D imaging HISTORY: Respiratory failure. Lung cancer. COMPARISON: 10/23/2019. FINDINGS: There is good contrast opacification pulmonary arteries and thoracic aorta with normal bran danielle of the great vessels at the aortic arch. Prominent calcification in the arterial structures. Emphysematous changes throughout the lungs are again demonstrated. There are now multifocal bilateral ill-defined predominantly peripheral areas of groundglass infiltrate. A 1.0 cm nodule within the posterolateral aspect of the left lower lobe is not significantly changed. More inferiorly, a new 1.7 cm irregular shaped soft tissue density nodule is present. The larger low density mass at the left lower lobe now measures up to 6.0 cm x 4.5 cm x 3.[address] diameters. No evidence of pneumothorax. No no enlarged lymph nodes are apparent. Small hiatal hernia. Small left adrenal adenoma and bilateral renal cysts are again demonstrated with in the partially visualized upper abdomen. Small gallstones are not as well demonstrated on today's exams. Old bilateral rib fractures. IMPRESSION : No evidence of pulmonary embolus. Multifocal peripheral groundglass infiltrates. Appearance of multifocal (viral) pneumonitis. Correlat e for COVID infection. Enlargement of bilateral lung nodules/masses. Atherosclerosis.
[2020-11-07 11:41] LABS: Ferritin 25.68 ng/mL (10-291); Thyroid Stimulating Hormone 2.4987 uIU/mL (0.35-4.94)
[2020-11-07 11:48] LABS: Lactic Acid 3.6 mmol/L (0.5-2.2)
[2020-11-07 15:21] LABS: Troponin I 5.656 ng/mL (< 0.028)
[2020-11-07] MEDS ORDERED: Vancomycin 1 GM in Premix Bag 1 BAG IVPB SCH (16:00)
[2020-11-07] MEDS: Sodium Chloride 0.9% 1,000 ML IV SCH ×2 (16:11→20:12)
[2020-11-07] MEDS: Heparin 5,000 UNITS/ML VIAL SC SCH ×2 (16:11→20:10)
--- NOTE | 2020-11-07 17:05 | CON ---
DATE OF CONSULTATION: HISTORY OF PRESENT ILLNESS: Peggy Billy is an 85-year-old demented patient from [facility], who apparently was brought in today for shortness of breath of unknown duration, saturations were 85% on 3 L. She is clearly demented, unable to get much history. She had a coronavirus test done, which is positive today, but apparently she had a diagnosis several weeks ago with a positive virus and was apparently never treated to the best of information. She is now in the MICU. She is a DNR. I personally spoke to her son, Dionte, who says supposed to be on Hospice Care. She has adenocarcinoma of the left lung, status post CT-guided biopsy. No specific treatment at this time. PAST MEDICAL HISTORY: COPD, lung cancer adenocarcinoma, coronary artery disease. PAST SURGICAL HISTORY: Appendix, bypass, hysterectomy, tonsillectomy, abdominal aortic surgery. SOCIAL HISTORY: Alcohol, none. Tobacco, former smoker. MEDICATIONS: retirement medications; 1. Prednisone. 2. Guaifenesin. 3. Spiriva. 4. Synthroid. 5. Symbicort. ALLERGIES: PENICILLIN AND HYDROCHLOROTHIAZIDE. REVIEW OF SYSTEMS: Unobtainable. PHYSICAL EXAMINATION: VITAL SIGNS: In the MICU, temperature 97, pulse 100, saturations are 95 on 2 L, respirations 22, blood pressure . CHEST: Rhonchi and crackles. CARDIAC: Normal S1 and S2. No gallops. ABDOMEN: No masses. LABORATORY DATA: Troponin slightly elevated. Lytes are normal. Carballo test as noted is positive. Other lab shows white count 19,000, hemoglobin and hematocrit are 7 and 26, platelet count 229, slight left shift. PO2 was 91, pCO2 of 51, pH 7.35, ON BiPAP. ASSESSMENT AND PLAN: 1. Respiratory failure, end-stage chronic obstructive pulmonary disease. 2. Left lower lung adenocarcinoma, superimposed pneumonia. 3. DNR. 4. Elevated troponin. I spoke to the son. I will transfer the patient out of the MICU to comfort room, medical. In the meantime, we could continue antibiotics and steroids. Consultation note 70 minutes, 50% direct patient care. Job ID: [id number]
[2020-11-07] MEDS: methylPREDNISolone Sod Succ 40 MG VIAL IVP SCH ×2 (17:26→23:32)
[2020-11-07] MEDS: Cefepime 2 GM in Sodium Chloride 0.9% 100 ML IVPB SCH (17:26)
[2020-11-07] MEDS ORDERED: Arformoterol 15 MCG/2 ML NEB NEB SCH (18:30)
[2020-11-07] MEDS ORDERED: Acetaminophen/Codeine 30-300mg Tablet PO PRN (18:37)
[2020-11-07] MEDS: Famotidine/PF 20 mg/2ml Vial SLOW IVP SCH (20:10)
[2020-11-07] MEDS: Albuterol 200 PUFF (6.7GM INHALER) INH SCH ×2 (21:40→23:32)
--- NOTE | 2020-11-07 22:06 | PDOC.BPN ---
- Brief Progress Note Encounter Date: 11/07/20 Encounter Time: 22:04 Reviewing labs from today and troponin has increased to 5. Given the overall clinical picture (Covid with pneumonia, copd with exacerbation, lung cancer), including patient was on hospice services prior to this admission, do not think that pt is a candidate for intervention. Will need to re-engage hospice to determine their plan for ongoing care of the patient. Case management consult placed.
[2020-11-08] MEDS: Cefepime 2 GM in Sodium Chloride 0.9% 100 ML IVPB SCH ×2 (00:24→08:25)
[2020-11-08] MEDS ORDERED: Morphine 2 MG/ML VIAL SLOW IVP SCH (02:15)
[2020-11-08] MEDS: Albuterol 200 PUFF (6.7GM INHALER) INH SCH ×3 (02:33→10:26)
[2020-11-08 03:48] LABS: #Lymphocytes 0.6 thou/uL (1.20-3.40); #Monocytes 0.2 thou/uL (0.11-0.59); #Neutrophils 10.3 thou/uL (1.40-6.50); %Eosinophils 0.1 % (0.0-10.0); %Lymphocytes 5.1 % (21.0-51.0); %Monocytes 1.4 % (0.0-10.0); %Neutrophils 93.4 % (42.0-75.0); Hemoglobin 6.4 g/dL (12.0-16.0); Mean Corpuscular HGB CONC 29.5 g/dL (32.0-36.0); Mean Corpuscular Volume 81.3 fL (78.0-98.0); Mean Platelet Volume 8.9 fL (7.4-10.4); Platelet Count 177 thou/uL (130-400); RBC Distribution Width 17.5 % (11.5-14.5); Red Blood Cell (RBC) Count 2.65 mill/uL (4.20-5.40)
[2020-11-08 04:06] LABS: Anion Gap 15 mmol/L (10-20); BUN (Urea Nitrogen) 22 mg/dL (9.8-20.1); Calc. Creatinine Clearance 0 mL/min (70-130); Calcium 7.5 mg/dL (7.8-10.44); Carbon Dioxide 20 mmol/L (23-31); Chloride 111 mmol/L (98-107); Glucose 115 mg/dL (83-110); Potassium 4.5 mmol/L (3.5-5.1); Sodium 141 mmol/L (136-145)
[2020-11-08] MEDS: Lorazepam 1 MG TAB PO PRN ×2 (05:05→10:55)
[2020-11-08] MEDS: methylPREDNISolone Sod Succ 40 MG VIAL IVP SCH ×2 (06:16→11:37)
[2020-11-08] MEDS ORDERED: Morphine 4 MG/ML VIAL ONE (07:14)
[2020-11-08] MEDS: Famotidine/PF 20 mg/2ml Vial SLOW IVP SCH (08:25)
[2020-11-08] MEDS: Heparin 5,000 UNITS/ML VIAL SC SCH (08:25)
[2020-11-08] MEDS: Sodium Chloride 0.9% 1,000 ML IV SCH (08:25)
[2020-11-08] MEDS ORDERED: Polyethylene Glycol 3350 17 GM Packet PO SCH (09:00)
--- NOTE | 2020-11-08 09:11 | PRG ---
DATE OF SERVICE: SUBJECTIVE: Peggy Billy 85-year-old female with multiple medical problems. OBJECTIVE: VITAL SIGNS: Sats are 100% on 4 L, pulse 84, blood pressure 139/93, demented, encephalopathic. CHEST: No wheezing. No crackles. CARDIAC: Normal S1, S2. ABDOMEN: No masses. DIAGNOSTIC STUDIES: LABORATORY RESULTS: White count 06571, H and H, 6 and 21, platelet count is 177. Lytes are normal. Troponin is elevated. I spoke to the patient's son at length. She is a DNR. She needs hospice care. IMPRESSION: 1. Carballo positive pneumonia, unclear how long she has been positive. 2. Chronic obstructive pulmonary disease, cachexia, dementia, left lung cancer. 3. She is a DNR. I would transfer out of the MICU to a monitored bed. Job ID: [id number]
[2020-11-08 12:18] VITALS: TEMP 97.2
--- NOTE | 2020-11-08 12:27 | PDOC.HOSPP ---
- Subjective Encounter Date: 11/08/20 Encounter Time: 12:25 Subjective: Ms. Billy was seen today in follow-up of COVID pneumonia with respiratory failure. She does not have any new complaints. - Objective Vital Signs & Weight: Vital Signs (12 hours) Temp Pulse Ox 11/08/20 12:10 97.2 F L 11/08/20 08:00 97.5 F L 11/08/20 07:46 100 11/08/20 03:56 97.3 F L Weight Weight 115 lb 11.883 oz Most Recent Monitor Data Heart Rate from ECG 86 NIBP 139/93 NIBP BP-Mean 108 Respiration from ECG 26 SpO2 100 I&O: 11/07/20 11/08/20 11/09/20 06:59 06:59 06:59 Intake Total 1257 Output Total 175 Balance 1082 Result Diagrams: 11/08/20 03:30 11/08/20 03:30 Hospitalist ROS - Medication Medications: Active Medications Generic Name Dose Route Start Last Admin Trade Name Freq PRN Reason Stop Dose Admin Albuterol Sulfate 2 puff 11/07/20 18:30 11/08/20 10:26 Albuterol 200 Puff (6.7gm Inhaler) INH Not Given Q5QH-MA JUNIE Famotidine 20 mg 11/07/20 21:00 11/08/20 08:25 Famotidine/Pf 20 Mg/2ml Vial SLOW IVP Not Given BID JUNIE Heparin Sodium (Porcine) 5,000 units 11/07/20 15:00 11/08/20 08:25 Heparin 5,000 Units/Ml Vial SC Not Given TID JUNIE Sodium Chloride 1,000 mls @ 100 mls/hr 11/07/20 10:00 11/08/20 08:25 Normal Saline 0.9% IV Not Given .Q10H JUNIE Cefepime HCl 2 gm/ Sodium 100 mls @ 200 mls/hr 11/07/20 17:00 11/08/20 08:25 Chloride IVPB Not Given 0100,0900,1700 JUNIE Vancomycin HCl 1 gm/ Device 200 mls @ 200 mls/hr 11/07/20 16:00 11/07/20 16:11 IVPB Not Given 1600 JUNIE Lorazepam 1 mg 11/07/20 11:48 11/08/20 10:55 Lorazepam 1 Mg Tab PO 1 mg Q4H PRN Administration Anxiety/Agitation Methylprednisolone Sodium Succinate 40 mg 11/07/20 18:00 11/08/20 11:37 Methylprednisolone Sod Succ 40 Mg Vial IVP Not Given Q6HR JUNIE Polyethylene Glycol 17 gm 11/08/20 09:00 11/08/20 08:26 Polyethylene Glycol 3350 17 Gm Packet PO Not Given DAILY JUNIE - Exam Eye: PERRL, anicteric sclera Heart: RRR, no murmur, no gallops, no rubs, normal peripheral pulses Respiratory: rales (+ rales at both bases, no rhonchi) Gastrointestinal: soft, non-tender, non-distended, normal bowel sounds, no palpable masses, no hepatomegaly Extremities: 1+ LE edema Hosp A/P (1) Acute respiratory failure with hypoxemia Code(s): J96.01 - ACUTE RESPIRATORY FAILURE WITH HYPOXIA Status: Acute (2) CAD (coronary artery disease) Code(s): I25.10 - ATHSCL HEART DISEASE OF [place] CORONARY ARTERY W/O ANG PCTRS Status: Chronic (3) HLD (hyperlipidemia) Code(s): E78.5 - HYPERLIPIDEMIA, UNSPECIFIED Status: Chronic (4) HTN (hypertension) Code(s): I10 - ESSENTIAL (PRIMARY) HYPERTENSION Status: Chronic (5) Acute respiratory failure due to COVID-19 Code(s): U07.1 - COVID-19; J96.00 - ACUTE RESPIRATORY FAILURE, UNSP W HYPOXIA OR HYPERCAPNIA Status: Acute - Plan * Acute respiratory failure with hypoxemia due to COVID - She will be transitioned to inpatient Hospice * HTN- blood pressure is stable * CAD- stable
--- NOTE | 2020-11-08 17:59 | PDOC.DS.DS ---
Provider - Provider Date of Admission: 11/07/20 09:42 Date of Discharge: 11/08/20 Admitting Provider: Noemi Pabon MD Consultations: Pulmonary Primary Care Physician: Shahram Wolfe MD Course - Hospital Course Hospital Course: Ms. Yi is a pleasant 85-year-old female that has a history of COPD on oxygen. She also has a history of lung cancer who is not receiving treatment. She presented from a local nursing facility with shortness of breath and was found to be hypoxic. She was diagnosed with Covid [address] angiogram in the emergency room revealed bilateral multifocal pneumonia. There was no evidence of pulmonary embolism. She was admitted to the hospital and started on BiPAP. She was evaluated by the bottle label inspector. After a couple of days in the hospital she decided to transition care to hospice. And on 11/08/2020 she was transitioned to inpatient hospice. Pertinent Studies: CTA of the chest Resuscitation Status: 11/07/20 15:32 Resuscitation Status Routine Resuscitation Status: DNAR: NO Resuscitation Discussed with: confirmed by palliative care with discussion with patient's son. - Labs Lab Results: 11/08/20 03:30 11/08/20 03:30 Abnormal Lab Results - Last 48 hrs 11/07/20 08:02: Lactic Acid 3.7 H 11/07/20 08:02: WBC 19.6 H, RBC 3.24 L, Hgb 7.5 L, Hct 26.3 L, MCH 23.2 L, MCHC 28.6 L, RDW 17.9 H, Band Neuts % (Manual) 21 H, Lymphocytes % (Manual) 3 L 11/07/20 08:02: D-Dimer 9.38 H 11/07/20 08:02: BUN 24 H, Serum Total Protein 5.7 L, Albumin 3.1 L 11/07/20 08:02: B-Natriuretic Peptide 518.4 H 11/07/20 08:02: Troponin I 0.152 H 11/07/20 08:10: Urine Glucose (UA) 200 A, Urine RBC 4-6 A 11/07/20 08:30: SARS-CoV-2 Rap RNA(RT-PCR) DETECTED A* 11/07/20 10:14: Troponin I 1.440 H* 11/07/20 10:14: Iron 17 L 11/07/20 10:14: Folate 5.70 L 11/07/20 10:14: Antibody Screen POSITIVE H, Crossmatch See Detail 11/07/20 11:06: Lactic Acid 3.6 H 11/07/20 14:25: Troponin I 5.656 H* 11/08/20 03:30: Chloride 111 H, Carbon Dioxide 20 L, BUN 22 H, Calcium 7.5 L 11/08/20 03:30: WBC 11.0 H, RBC 2.65 L, Hgb 6.4 L, Hct 21.6 L, MCH 24.0 L, MCHC 29.5 L, RDW 17.5 H, Neutrophils % 93.4 H, Lymphocytes % 5.1 L, Neutrophils # 10.3 H, Lymphocytes # 0.6 L Microbiology - Entire Visit 11/07/20 08:15 Venous blood - Right Arm Blood Culture - Preliminary Specimen has been received and culture in progress. No Growth to date. 11/07/20 08:15 Venous blood - Left Arm Blood Culture - Preliminary Specimen has been received and culture in progress. No Growth to date. 11/07/20 08:10 Urine Straight Catheter Urine Culture - Preliminary NO GROWTH AT 24 HOURS - Physical Exam Vitals: Vital Signs (12 hours) Temp Pulse Ox 11/08/20 12:10 97.2 F L 11/08/20 08:00 97.5 F L 11/08/20 07:46 100 Weight Weight 115 lb 11.883 oz Most Recent Monitor Data Heart Rate from ECG 86 NIBP 139/93 NIBP BP-Mean 108 Respiration from ECG 26 SpO2 100 Physical Exam: The patient was seen and examined on the day of discharge. Problem - Problem (1) Acute respiratory failure with hypoxemia Code(s): J96.01 - ACUTE RESPIRATORY FAILURE WITH HYPOXIA Status: Acute (2) CAD (coronary artery disease) Code(s): I25.10 - ATHSCL HEART DISEASE OF [place] CORONARY ARTERY W/O ANG PCTRS Status: Chronic (3) HLD (hyperlipidemia) Code(s): E78.5 - HYPERLIPIDEMIA, UNSPECIFIED Status: Chronic (4) HTN (hypertension) Code(s): I10 - ESSENTIAL (PRIMARY) HYPERTENSION Status: Chronic (5) Acute respiratory failure due to COVID-19 Code(s): U07.1 - COVID-19; J96.00 - ACUTE RESPIRATORY FAILURE, UNSP W HYPOXIA OR HYPERCAPNIA Status: Acute Plan - Discharge Medications Home Medications: Medication Instructions Recorded Confirmed Type Acetaminophen W/ Codeine 1 tab PO Q6H PRN 09/29/14 11/07/20 History [Acetaminophen/Codeine #3] diphenhydrAMINE [Benadryl] 25 mg PO Q6H #30 cap 12/30/19 11/07/20 Rx predniSONE [Prednisone] 40 mg PO DAILY #10 tablet 01/04/20 11/07/20 Rx Ascorbic Acid [Vitamin C] 500 mg PO DAILY 11/07/20 11/07/20 History Hyoscyamine Sulfate [Levsin SL] 0.125 mg SL Q6HR 11/07/20 11/07/20 History Ipratropium/Albuterol Sulfate 3 ml NEB QID PRN 11/07/20 11/07/20 History [DuoNeb] LORazepam [Lorazepam] 1 mg PO Q4HR PRN 11/07/20 11/07/20 History Magnesium Hydroxide [Milk of 5 ml PO BID 11/07/20 11/07/20 History Magnesia] Morphine ER [MS Contin] 30 mg PO TID PRN 11/07/20 11/07/20 History Polyethylene Glycol 3350 [Miralax] 17 gm PO DAILY 11/07/20 11/07/20 History Promethazine [Phenergan] 25 mg PO Q4HR PRN 11/07/20 11/07/20 History Allergies: Penicillins Allergy (Severe, Verified 11/07/20 16:20) PT STATES SHE HAS A " BAD " REACTION TO IT bisoprolol [From Ziac] Allergy (Verified 11/07/20 16:20) hydrochlorothiazide [From Ziac] Allergy (Verified 11/07/20 16:20) - Discharge Instructions Activity:: Activity as Tolerated Nourishment:: Heart Healthy Diet - Follow up Plan Referrals: Shahram Wolfe MD [Primary Care Provider] - Disposition: [facility] Quality - Care Measures CORE MEASURES:: N/A
== END 2020-11-08 12:41 | disposition hospice, inpatient (51) | DRG 871 ==
LOC: ERS 07:47 → ERHOLD 09:42 → IMCU/EMU 15:58
PROVIDERS: ADMIT Family Medicine; ATTEND Family Medicine
PROC: 8E0ZXY6 Isolation (ICD-10-PCS; principal; 2020-11-07)
PROC: 5A09357 Assistance with Respiratory Ventilation, Less than 24 Consecutive Hours, Continuous Positive Airway Pressure (ICD-10-PCS; 2020-11-07)
DX: A41.89 Other specified sepsis (principal); U07.1 COVID-19; J12.89 Other viral pneumonia; J96.01 Acute respiratory failure with hypoxia; J44.0 Chronic obstructive pulmonary disease with (acute) lower respiratory infection; C34.90 Malignant neoplasm of unspecified part of unspecified bronchus or lung; J44.1 Chronic obstructive pulmonary disease with (acute) exacerbation; Z66 Do not resuscitate; R65.20 Severe sepsis without septic shock; I10 Essential (primary) hypertension; E78.5 Hyperlipidemia, unspecified; E78.00 Pure hypercholesterolemia, unspecified; E03.9 Hypothyroidism, unspecified; F41.9 Anxiety disorder, unspecified; D64.9 Anemia, unspecified; I25.10 Atherosclerotic heart disease of native coronary artery without angina pectoris; F03.90 Unspecified dementia, unspecified severity, without behavioral disturbance, psychotic disturbance, mood disturbance, and anxiety; F17.210 Nicotine dependence, cigarettes, uncomplicated; Z88.0 Allergy status to penicillin; Z88.8 Allergy status to other drugs, medicaments and biological substances; Z95.1 Presence of aortocoronary bypass graft; Z90.710 Acquired absence of both cervix and uterus; Z79.51 Long term (current) use of inhaled steroids; Z79.899 Other long term (current) drug therapy; I25.2 Old myocardial infarction; Z90.49 Acquired absence of other specified parts of digestive tract; Z79.890 Hormone replacement therapy; Z79.52 Long term (current) use of systemic steroids
CPT/HCPCS: 0240U; 36415; 71045; 71275; 80048; 80053; 81003; 82553; 82607; 82728; 82746; 83540; 83605; 83880; 84443; 84484; 85025; 85379; 85610; 85730; 86850; 86870; 86900; 86901; 86922; 87040; 87086; 93005; 94644; 94660; 94760; J0456; J0692; J0696; J1644; J2060; J2270; J2920; J2930; J3490; J7611; Q9967; S0028

== ENCOUNTER 2020-11-08 12:54 | Inpatient (IN) | payer OTHER ==
[2020-11-08 12:58] VITALS: BMI 20.4
[2020-11-08] MEDS ORDERED: Scopolamine 1.5 mg/72 hour Patch TOP PRN (13:30)
[2020-11-08] MEDS ORDERED: Haloperidol Lactate 5 MG/ML VIAL SLOW IVP PRN (13:30)
[2020-11-08] MEDS ORDERED: Ondansetron PF 4 MG/2 ML Vial IVP PRN (13:30)
[2020-11-08] MEDS: Morphine 4 MG/ML VIAL SLOW IVP PRN ×3 (13:43→19:32)
[2020-11-08] MEDS: Lorazepam 2 MG/ML VIAL SLOW IVP PRN (22:58)
[2020-11-09] MEDS: Morphine 4 MG/ML VIAL SLOW IVP PRN ×4 (00:39→20:41)
[2020-11-09] MEDS: Lorazepam 2 MG/ML VIAL SLOW IVP PRN ×2 (04:45→18:21)
[2020-11-10] MEDS: Lorazepam 2 MG/ML VIAL SLOW IVP PRN (01:08)
[2020-11-10] MEDS: Morphine 4 MG/ML VIAL SLOW IVP PRN ×4 (05:20→22:56)
[2020-11-11] MEDS: Morphine 4 MG/ML VIAL SLOW IVP PRN ×5 (00:30→21:55)
[2020-11-12] MEDS: Morphine 4 MG/ML VIAL SLOW IVP PRN ×2 (05:31→11:33)
[2020-11-12] MEDS: Lorazepam 2 MG/ML VIAL SLOW IVP PRN (19:46)
[2020-11-13] MEDS: Lorazepam 2 MG/ML VIAL SLOW IVP PRN (19:46)
[2020-11-13] MEDS: Morphine 4 MG/ML VIAL SLOW IVP PRN (21:22)
[2020-11-14 08:04] VITALS: BP 148/84; TEMP 97.3
[2020-11-14] MEDS: Morphine 4 MG/ML VIAL SLOW IVP PRN (13:21)
== END 2020-11-14 14:10 | DRG 951 ==
LOC: IMCU/EMU 12:54 → T4-B 22:43
PROVIDERS: ADMIT Family Medicine; ATTEND Family Medicine
DX: Z51.5 Encounter for palliative care (principal); J18.9 Pneumonia, unspecified organism; U07.1 COVID-19; Z66 Do not resuscitate; C34.90 Malignant neoplasm of unspecified part of unspecified bronchus or lung; J44.0 Chronic obstructive pulmonary disease with (acute) lower respiratory infection; J96.11 Chronic respiratory failure with hypoxia; J96.12 Chronic respiratory failure with hypercapnia; J44.1 Chronic obstructive pulmonary disease with (acute) exacerbation; I25.10 Atherosclerotic heart disease of native coronary artery without angina pectoris; I10 Essential (primary) hypertension; R77.8 Other specified abnormalities of plasma proteins; I71.4 Abdominal aortic aneurysm, without rupture; E03.9 Hypothyroidism, unspecified; Z88.0 Allergy status to penicillin; Z88.8 Allergy status to other drugs, medicaments and biological substances; Z99.81 Dependence on supplemental oxygen; Z79.899 Other long term (current) drug therapy; Z79.51 Long term (current) use of inhaled steroids; Z90.49 Acquired absence of other specified parts of digestive tract; Z90.710 Acquired absence of both cervix and uterus; Z90.89 Acquired absence of other organs; Z95.1 Presence of aortocoronary bypass graft
CPT/HCPCS: J2060; J2270